=== PATIENT | male | born 1950 | race Caucasian/White ===

== ENCOUNTER 2018-07-20 08:05 | Inpatient (IN) | payer MEDICARE ==
[~2018-07-20] VITALS: Ht 162.6 cm; Wt 61.2 kg
[~2018-07-20 08:05] MED LIST: ALBU90OI61 INH; AMIT50 PO; ATEN25 PO; AZIT250 PO; Advil200 M1 PO; CAPT50 PO; DOXY100 PO; FERR325 PO; Fruity C250 MG PO; HYDACE5 PO; LEVOCETIRIZINE PO; LISHYD1012 PO; LORA1 PO; MELATONIN 10 M1 EACH PO; METO25ER PO; PANT40 PO; TRAZ50 PO; [UNRECOGNIZED DRUG - OTHER] PO
[2018-07-20 08:45] LABS: BASOPHILS ABSOLUTE AUTO 0.03 K/mm3 (0.00-0.23); BASOPHILS PERCENT AUTO 0 % (0-2); EOSINOPHILS ABSOLUTE AUTO 0.02 K/mm3 (0.00-0.68); EOSINOPHILS PERCENT AUTO 0 % (0-6); Hematocrit 38.4 % (37.0-53.0); Hemoglobin 11.8 g/dL (13.5-17.5); IMMATURE GRAN ABSOLUTE AUTO 0.05 K/mm3 (0.00-0.10); IMMATURE GRAN PERCENT AUTO 0 % (0-1); LYMPHOCYTES ABSOLUTE AUTO 0.44 K/mm3 (0.84-5.20); LYMPHOCYTES PERCENT AUTO 4 % (21-46); MONOCYTES ABSOLUTE AUTO 0.85 K/mm3 (0.16-1.47); MONOCYTES PERCENT AUTO 7 % (4-13); Mean Corpuscular HGB 25.2 pg (26.0-34.0); Mean Corpuscular HGB Conc 30.7 g/dL (31.5-36.5); Mean Corpuscular Volume 82 fL (80-100); Mean Platelet Volume 9.1 fL (9.1-12.4); NEUTROPHILS ABSOLUTE AUTO 10.88 K/mm3 (1.96-9.15); NEUTROPHILS PERCENT AUTO 89 % (41-73); Platelet Count 451 K/mm3 (150-400); RDW Coefficient Variation 18.8 % (11.7-14.2); RDW Standard Deviation 56.2 fL (35.1-46.3); Red Blood Cell Count 4.68 M/mm3 (4.30-5.90); White Blood Cell Count 12.27 K/mm3 (4.00-11.30)
[2018-07-20 09:08] LABS: Alanine Aminotransfer (ALT/SGP 10 U/L (12-78); Albumin, Blood 2.2 g/dL (3.4-5.0); Albumin/Globulin Ratio 0.4 (0.8-1.8); Alk Phos 62 U/L (50-136); Anion Gap 5 mmol/L (6-16); Aspartate Aminotrans (AST/SGOT 11 U/L (12-37); Bilirubin, Total 0.6 mg/dL (0.1-1.0); Blood Urea Nitrogen 15 mg/dL (8-24); Bun/Creatinine Ratio 17.3 (12.0-20.0); CO2, Blood 25 mmol/L (21-32); Chloride, Blood 103 mmol/L (98-108); Creatinine, Blood 0.87 mg/dL (0.60-1.20); Globulin, Blood 5.7 g/dL (2.2-4.0); Glomerular Filtration Rate >60 (60-); Glucose, Blood 123 mg/dL (70-99); Potassium, Blood 4.5 mmol/L (3.5-5.5); Sodium, Blood 133 mmol/L (136-145); Total Protein, Blood 7.9 g/dL (6.4-8.2); Troponin I <0.015 ng/mL (0.000-0.040)
[2018-07-20 09:51] LABS: Bicarbonate Venous 22.5 mmol/L (24.0-30.0); PCO2 Venous 31.6 mmHg (38-42); PO2 Venous 83.6 mmHg (38-42); pH Blood Venous 7.44 (7.34-7.37)
--- NOTE | 2018-07-20 15:56 | NUR ---
RECEIVED REPORT FROM WENDY SMITH
--- NOTE | 2018-07-20 18:10 | NUR ---
NOTIFIED DANIELE VIA [place] OF NEED FOR PALLIATIVE CARE CONSULT 07/20/18 @8768
--- NOTE | 2018-07-20 18:53 | NUR ---
SHIFT SUMMARY ED ADMIT THIS AFTERNOON. FROTHY PINKISH SPUTUM. LEFT SIDED PNEUMONIA. HX CVA/DEMENTIA OX2 PERSON, PLACE. CONFUSED AT TIMES. COGNITIVE IMPAIRMENT. LIVES IN APT INDEPENDENTLY. INDEPENDENT IN ROOM AND CONTINENT.
[2018-07-20 20:17] LABS: Adenovirus Not Detected (NOT DETECT); Bordetella pertussis Not Detected (NOT DETECT); Chlamydophila pneumoniae Not Detected (NOT DETECT); Coronavirus 229E Not Detected (NOT DETECT); Coronavirus HKU1 Not Detected (NOT DETECT); Coronavirus NL63 Not Detected (NOT DETECT); Coronavirus OC43 Not Detected (NOT DETECT); Human Metapneumovirus Not Detected (NOT DETECT); Human Rhinovirus/Enterovirus Not Detected (NOT DETECT); Influenza A Not Detected (NOT DETECT); Influenza A/2009-H1 Not Detected (NOT DETECT); Influenza A/H1 Not Detected (NOT DETECT); Influenza A/H3 Not Detected (NOT DETECT); Influenza B Not Detected (NOT DETECT); Mycoplasma pneumoniae Not Detected (NOT DETECT); Parainfluenza Virus 1 Not Detected (NOT DETECT); Parainfluenza Virus 2 Not Detected (NOT DETECT); Parainfluenza Virus 3 Not Detected (NOT DETECT); Parainfluenza Virus 4 Not Detected (NOT DETECT); Respiratory Syncytial Virus Not Detected (NOT DETECT)
--- NOTE | 2018-07-20 23:16 | NUR ---
2230 PT PULLED OUT LEFT ANTECUBITAL IV WHEN WALKING INTO BATHROOM, SITE WITHOUT REDNESS OR SWELLING, PRESSURE DRESSING APPLIED.
[2018-07-21 05:02] LABS: Hematocrit 32.4 % (37.0-53.0); Mean Corpuscular HGB 24.8 pg (26.0-34.0); Mean Corpuscular HGB Conc 30.9 g/dL (31.5-36.5); Mean Corpuscular Volume 80 fL (80-100); Mean Platelet Volume 9.2 fL (9.1-12.4); Platelet Count 390 K/mm3 (150-400); RDW Coefficient Variation 18.8 % (11.7-14.2); RDW Standard Deviation 54.4 fL (35.1-46.3); Red Blood Cell Count 4.04 M/mm3 (4.30-5.90); White Blood Cell Count 14.68 K/mm3 (4.00-11.30)
[2018-07-21 05:22] LABS: Anion Gap 7 mmol/L (6-16); Blood Urea Nitrogen 18 mg/dL (8-24); Bun/Creatinine Ratio 24.7 (12.0-20.0); CO2, Blood 22 mmol/L (21-32); Calcium, Blood 7.9 mg/dL (8.5-10.1); Chloride, Blood 106 mmol/L (98-108); Creatinine, Blood 0.73 mg/dL (0.60-1.20); Glomerular Filtration Rate >60 (60-); Glucose, Blood 101 mg/dL (70-99); Potassium, Blood 3.9 mmol/L (3.5-5.5); Sodium, Blood 135 mmol/L (136-145)
[2018-07-21 05:27] LABS: BAND PERCENT MAN 13 % (0-8); BASOPHILS ABSOLUTE MAN 0.14 K/mm3 (0.00-0.23); BASOPHILS PERCENT MAN 1 % (0-2); EOSINOPHILS PERCENT MAN 0 % (0-6); LYMPHOCYTES ABSOLUTE MAN 0.88 K/mm3 (0.84-5.20); LYMPHOCYTES PERCENT MAN 6 % (21-46); MONOCYTES ABSOLUTE MAN 0.88 K/mm3 (0.16-1.47); MONOCYTES PERCENT MAN 6 % (4-13); NEUTROPHILS ABSOLUTE MAN 12.77 K/mm3 (1.96-9.15); SEG NEUTROPHILS PERCENT MAN 74 % (41-73); TOTAL CELLS COUNTED 100
[2018-07-21 05:38] LABS: Percent Saturation 6.3 % (20.0-50.0)
--- NOTE | 2018-07-21 08:10 | NUR ---
SHIFT SUMMARY: 67 Y/O MALE HAD RESTLESS EVENING ALL NIGHT WITH OCCASIONAL HARSH NON PRODUCTIVE COUGH NOTED, LUNG SOUNDS ARE RHONCHI THROUGHOUT WHICH INCREASED DYSPNEA NOTED WITH SLIGHT ACTIVITY. PT STARTED ON O2 AT 2L/M PER NASAL CANNULA AFTER SATURATIONS WERE 85% (SATS AFTER O2 STARTED WERE 92%). PTS VOICED DESIRE TO LEAVE HOSPITAL MULTIPLE TIMES DUE TO IV PUMP NOISE AND FREQUENT STAFF INTERVENTIONS TO ASSIST. THIS NURSE REMINDED PATIENT OF CURRENT PNEUMONIA DIAGNOSIS AND NEED TO RECEIVE ANTIBIOTICS AND TREATMENTS PRIOR TO BE DISCHARGED TO AVOID A REPEAT HOSPITALIZATION PNEUMONIA ISSUE NOT RESOLVED WITH PATIENT AGREEING TO STAY IN HOSPITAL. PT HAS VERY SHORT ATTENTION SPAN AT TIMES NOTED BY THIS NURSE. PTS GIVEN TORALOL 30MG IVP X 1 FOR LEFT ABD PAIN WITH RELIEF FELT. PT DENIES NAUSEA. PTS BED ALARM APPLIED, BED LOW POSITION, CALL LIGHT AT SIDE.
--- NOTE | 2018-07-21 19:51 | NUR ---
SHIFT SUMMARY: PT HX DEMENTIA; CONFUSED. MEDICATED FOR PAIN PER EMAR. CHEST TUBE PLACED THIS SHIFT; SEROUS DRAINAGE. IV ABX CONTINUING. REPORT GIVEN TO ONCOMING RN.
--- NOTE | 2018-07-22 03:21 | NUR ---
PTS RESPIRATORY RATE 36 WITH NOTICEABLE DYSPNEA NOTED. PT HAD BEEN REFUSING ALL RESPIRATORY TX, THIS NURSE ENCOURAGED PT TO TAKE ALL NEBULIZERS TREATMENTS OFFERED BY RT WITH PATIENT IN AGREEMENT. PT THEN TOOK TREATMENT VIA RT. THIS NURSE EMPTIED LEFT REAR FLANK DRAIN 100ML SEROSANGUINUOUS FLUID.
--- NOTE | 2018-07-22 05:02 | NUR ---
SHIFT SUMMARY: 67 Y/O MALE HAD SLIGHTLY RESTLESS NIGHT AT TIMES WITH LUNG SOUNDS RHONCHI THROUGHOUT WITH HARSH PRODUCTIVE COUGH YELLOW PHELGM (MODERATE AMOUNT). PT HAS TENDENCY TO DECLINE RESPIRATORY TREATMENTS WITH THIS NURSE ENCOURAGING PATIENT TO TAKE NEBULIZERS WHEN OFFERED WITH PATIENT IN AGREEMENT. PT HAS SLIGHT BODY ODOR NOTED AND DECLINES TO WASH UP WITH SOAP/WATER AT THIS TIME. PT C/O LEFT FLANK PAIN ONCE WITH TORADOL 30MG IVP GIVEN WITH RELIEF FELT. PT IS ALERT AND ORIENTED X 3, ABLE TO FOLLOW SIMPLE VERBAL COMMANDS. PTS BED LOW POSITION, CALL LIGHT AT SIDE.
--- NOTE | 2018-07-22 05:17 | NUR ---
PT FREQUENTLY NON COMPLIANT WITH KEEPING O2 APPLIED WITH STAFF FINDING TUBING ON BED OR ON THE FLOOR.
[2018-07-22 05:21] LABS: BASOPHILS ABSOLUTE AUTO 0.03 K/mm3 (0.00-0.23); BASOPHILS PERCENT AUTO 0 % (0-2); EOSINOPHILS ABSOLUTE AUTO 0.05 K/mm3 (0.00-0.68); EOSINOPHILS PERCENT AUTO 0 % (0-6); Hemoglobin 10.4 g/dL (13.5-17.5); IMMATURE GRAN ABSOLUTE AUTO 0.16 K/mm3 (0.00-0.10); IMMATURE GRAN PERCENT AUTO 1 % (0-1); LYMPHOCYTES PERCENT AUTO 3 % (21-46); MONOCYTES ABSOLUTE AUTO 0.96 K/mm3 (0.16-1.47); MONOCYTES PERCENT AUTO 5 % (4-13); Mean Corpuscular HGB 24.5 pg (26.0-34.0); Mean Corpuscular HGB Conc 30.6 g/dL (31.5-36.5); Mean Corpuscular Volume 80 fL (80-100); Mean Platelet Volume 9.1 fL (9.1-12.4); NEUTROPHILS ABSOLUTE AUTO 16.38 K/mm3 (1.96-9.15); NEUTROPHILS PERCENT AUTO 90 % (41-73); Platelet Count 436 K/mm3 (150-400); Red Blood Cell Count 4.25 M/mm3 (4.30-5.90); White Blood Cell Count 18.18 K/mm3 (4.00-11.30)
[2018-07-22 05:41] LABS: Alanine Aminotransfer (ALT/SGP 12 U/L (12-78); Albumin, Blood 1.9 g/dL (3.4-5.0); Albumin/Globulin Ratio 0.4 (0.8-1.8); Alk Phos 66 U/L (50-136); Anion Gap 8 mmol/L (6-16); Aspartate Aminotrans (AST/SGOT 13 U/L (12-37); Bilirubin, Total 0.4 mg/dL (0.1-1.0); Blood Urea Nitrogen 16 mg/dL (8-24); Bun/Creatinine Ratio 23.5 (12.0-20.0); CO2, Blood 21 mmol/L (21-32); Calcium, Blood 8.4 mg/dL (8.5-10.1); Chloride, Blood 103 mmol/L (98-108); Creatinine, Blood 0.68 mg/dL (0.60-1.20); Globulin, Blood 5.1 g/dL (2.2-4.0); Glomerular Filtration Rate >60 (60-); Glucose, Blood 98 mg/dL (70-99); Lactate Dehydrogenase (Ld),Bld 364 U/L (100-240); Potassium, Blood 3.9 mmol/L (3.5-5.5); Sodium, Blood 132 mmol/L (136-145)
[2018-07-22 14:41] LABS: Protein, Body Fluid 5.8 g/dL
--- NOTE | 2018-07-22 18:37 | NUR ---
SHIFT SUMMARY: PT ALERT; CONFUSED; HX CVA IN 1989. MEDICATED FOR PAIN PER EMAR. PT FREQUENTLY REMOVING O2 R/T CONFUSION. PULMONOLOGY (DR BAUTISTA) SAW PT THIS SHIFT; NS D/C'd; ECHO ORDERED FOR 07/23; PT'S LUNGS SOUND VERY "WET"; DR BAUTISTA SUSPECTS ASPIRATION PNA. IV ABX CONTINUING. WCTM.
--- NOTE | 2018-07-23 04:20 | NUR ---
SHIFT SUMMARY: 67 Y/O MALE RESTED QUIETLY ALL SHIFT. PT AT BEGINNING OF SHIFT WAS SWEARING ALOT AT THIS NURSE AND APPEARED SLIGHTLY AGITATED AT TIMES WITH BEING IN HOSPITAL FOR EXTENDED PERIOD OF TIME WITH CURRENT ILLNESS. THIS NURSE PROVIDED LISTENING EAR AND ATTEMPTED TO REDIRECT WITHOUT SUCCESS. PTS LIGHTS WERE DIMMENED WITH PATIENT LATER APOLGIZING FOR HIS BEHAVIOR. PTS LUNG ARE RHONCHI THROUGHT WITH OCCASIONAL PRODUCTIVE COUGH BROWN PHELGM. PT HAS FREQUENT TENDENCY TO REMOVE O2 AND REQUIRES REMINDER FROM NURSING STAFF TO KEEP INTACT DUE TO DESATURATION EPISODES (PT SATS 91% WHILE WEARING O2 AT 2L/M PER NASAL CANNULA). PT HAS VERY STRONG BODY ODOR NOTED WITH THIS NURSE OFFERING TO SET UP FOR BEDSIDE BATH WITH DECLINATION NOTED AT THIS TIME. PTS IV RIGHT ANTECUBITAL INTACT. PT LEFT REAR FLANK DRAIN TUBE EMPTIED 60ML TEA COLORED FLUID. PT DENIES NEED FOR PAIN MEDS, NO NAUSEA NOTED. PTS BED LOW POSITION, CALL LIGHT AT SIDE.
[2018-07-23 05:14] LABS: BASOPHILS ABSOLUTE AUTO 0.04 K/mm3 (0.00-0.23); BASOPHILS PERCENT AUTO 0 % (0-2); EOSINOPHILS ABSOLUTE AUTO 0.04 K/mm3 (0.00-0.68); EOSINOPHILS PERCENT AUTO 0 % (0-6); Hematocrit 32.6 % (37.0-53.0); Hemoglobin 9.8 g/dL (13.5-17.5); IMMATURE GRAN ABSOLUTE AUTO 0.13 K/mm3 (0.00-0.10); IMMATURE GRAN PERCENT AUTO 1 % (0-1); LYMPHOCYTES ABSOLUTE AUTO 0.95 K/mm3 (0.84-5.20); LYMPHOCYTES PERCENT AUTO 5 % (21-46); MONOCYTES ABSOLUTE AUTO 1.01 K/mm3 (0.16-1.47); MONOCYTES PERCENT AUTO 5 % (4-13); Mean Corpuscular HGB 24.9 pg (26.0-34.0); Mean Corpuscular HGB Conc 30.1 g/dL (31.5-36.5); Mean Corpuscular Volume 83 fL (80-100); Mean Platelet Volume 9.3 fL (9.1-12.4); NEUTROPHILS ABSOLUTE AUTO 17.11 K/mm3 (1.96-9.15); NEUTROPHILS PERCENT AUTO 89 % (41-73); Platelet Count 443 K/mm3 (150-400); RDW Coefficient Variation 19.1 % (11.7-14.2); RDW Standard Deviation 58.4 fL (35.1-46.3); Red Blood Cell Count 3.94 M/mm3 (4.30-5.90); White Blood Cell Count 19.28 K/mm3 (4.00-11.30)
[2018-07-23 05:52] LABS: Albumin, Blood 1.7 g/dL (3.4-5.0); Anion Gap 6 mmol/L (6-16); Blood Urea Nitrogen 11 mg/dL (8-24); Bun/Creatinine Ratio 17.1 (12.0-20.0); CO2, Blood 23 mmol/L (21-32); Calcium, Blood 8.4 mg/dL (8.5-10.1); Chloride, Blood 105 mmol/L (98-108); Creatinine, Blood 0.64 mg/dL (0.60-1.20); Glomerular Filtration Rate >60 (60-); Glucose, Blood 85 mg/dL (70-99); Phosphorus, Blood 2.7 mg/dL (2.5-4.9); Potassium, Blood 3.8 mmol/L (3.5-5.5); Sodium, Blood 134 mmol/L (136-145)
--- NOTE | 2018-07-23 11:10 | NUR ---
Echocardiogram completed.
--- NOTE | 2018-07-23 15:50 | NUR ---
THE TEGADERM WAS REPLACED ON HIS LEFT DORSAL EMPYEMA DRAIN BECAUSE THE OLD ONE BEGAN TO ROLL UP AND OFF. ECHO DONE THIS MORNING. SPEECH THERAPIST EVALUATED HIM. HE NEEDS MECH SOFT DIET AND MEDS WHOLE IN APPLESAUCE. THE DRAINAGE COLOR IN THE DRAIN BAG HAS LIGHTENED UP. LUNGS ARE VERY COARSE AND HIS COUGH IS WEAK AND SOUNDS AWFUL. IT IS SO WET. HE IS ABLE TO EXPECTORATE A LITTLE OF IT. HE HAS DEMENTIA AND IS IRRITABLE OR AGITATED INTERMITTENTLY. HE IS MOSTLY COOPERATIVE. I HAVE HAD TO REPLACE HIS O2 CANNULA IN HIS NOSE MANY TIMES.
--- NOTE | 2018-07-23 18:38 | NUR ---
HE REMAINS CONFUSED AND COOPERATIVE. HE PAYS NO ATTENTION TO HIS DRAIN OR ANY SUPPLIES OR MEALS. THERE IS USUALLY SOMETHING ON THE FLOOR EACH TIME I GO INTO THE ROOM. HE USES THE URINAL AT THE BEDSIDE. THE LASIX LIGHTENED UP HIS URINE. HE HAS A WEAK, WET COUGH, SOMETIMES PRODUCTIVE. NO HEMOPTYSIS. SMALL AMT OF YELLOW FLUID EMPTIED FROM HIS L CT DRAIN BAG.
--- NOTE | 2018-07-23 23:27 | NUR ---
PTS LEFT FLANK DRAIN HAS NO DRAINAGE AT THIS TIME (INSERTION SITE INTACT).
--- NOTE | 2018-07-24 04:09 | NUR ---
SHIFT SUMMARY: 67 Y/O MALE RESTED COMFORTABLY ALL EVENING WITH HEAD OF BED AT SEMI FOWLERS POSITION. PTS HAPPY AND COOPERATIVE, ALERT TO PERSON, FOLLOWING ALL SIMPLE VERBAL COMMANDS. PTS LEFT FLANK DRAIN TUBE HAD SCANT SERO SANGUINUOUS DRAINAGE NOTED WITH INSERTIOIN SITE WITHOUT REDNESS OR SWELLING. PT WILL NOT WEAR O2 AT ALL AND CONSTANTLY REMOVES FROM FACE WHEN O2 PLACED BY STAFF (PT HAS POOR SHORT TERM MEMORY SPAN NOTED). PT DENIES PAIN OR NAUSEA. PTS BED LOW POSITION, CALL LIGHT AT SIDE. PT NOTED TO HAVE OCCASIONAL NON PRODUCTIVE HARSH COUGH (LESS FREQUENT COMPARED TO LAST PM SHIFT).
[2018-07-24 04:55] LABS: BASOPHILS ABSOLUTE AUTO 0.05 K/mm3 (0.00-0.23); BASOPHILS PERCENT AUTO 0 % (0-2); EOSINOPHILS ABSOLUTE AUTO 0.04 K/mm3 (0.00-0.68); EOSINOPHILS PERCENT AUTO 0 % (0-6); Hematocrit 32.1 % (37.0-53.0); IMMATURE GRAN ABSOLUTE AUTO 0.13 K/mm3 (0.00-0.10); IMMATURE GRAN PERCENT AUTO 1 % (0-1); LYMPHOCYTES ABSOLUTE AUTO 0.95 K/mm3 (0.84-5.20); LYMPHOCYTES PERCENT AUTO 4 % (21-46); MONOCYTES ABSOLUTE AUTO 1.27 K/mm3 (0.16-1.47); MONOCYTES PERCENT AUTO 6 % (4-13); Mean Corpuscular HGB 25.1 pg (26.0-34.0); Mean Corpuscular HGB Conc 31.2 g/dL (31.5-36.5); Mean Corpuscular Volume 81 fL (80-100); NEUTROPHILS ABSOLUTE AUTO 19.09 K/mm3 (1.96-9.15); NEUTROPHILS PERCENT AUTO 89 % (41-73); Platelet Count 458 K/mm3 (150-400); RDW Coefficient Variation 19.2 % (11.7-14.2); RDW Standard Deviation 56.6 fL (35.1-46.3); Red Blood Cell Count 3.98 M/mm3 (4.30-5.90); White Blood Cell Count 21.53 K/mm3 (4.00-11.30)
[2018-07-24 05:14] LABS: Albumin, Blood 1.8 g/dL (3.4-5.0); Anion Gap 5 mmol/L (6-16); Blood Urea Nitrogen 11 mg/dL (8-24); Bun/Creatinine Ratio 17.4 (12.0-20.0); CO2, Blood 29 mmol/L (21-32); Calcium, Blood 8.7 mg/dL (8.5-10.1); Chloride, Blood 102 mmol/L (98-108); Creatinine, Blood 0.63 mg/dL (0.60-1.20); Glomerular Filtration Rate >60 (60-); Glucose, Blood 95 mg/dL (70-99); Phosphorus, Blood 2.6 mg/dL (2.5-4.9); Potassium, Blood 3.1 mmol/L (3.5-5.5); Sodium, Blood 136 mmol/L (136-145)
--- NOTE | 2018-07-24 15:18 | NUR ---
GAVE PT BEDBATH AT ABOUT 1330 PM. CHANGED LINENS AND PT IN NEW CLOTHES. NOTICED PT DOES NOT WIPE THOROUGHLY AFTER BM. STOOL RESIDUAL NOTED ON INSIDE OF PJ BOTTOMS. CLEANED WITH WET WIPES AND DRIED THOROUGHLY.
[2018-07-24 20:30] LABS: Vancomycin, Trough 12.6 ug/mL (5.0-10.0)
--- NOTE | 2018-07-25 04:06 | NUR ---
SHIFT SUMMARY: 67 Y/O MALE RESTED COMFORTABLY IN SEMI FOWLERS ALL NIGHT. PTS LUNGS ARE RHONCHI THROUGHOUT WITH OCCASIONAL HARSH PRODUCTIVE COUGH SCANT BROWN PHELGM. PT REMOVES O2 FROM SELF FREQUENTLY AND REFUSES TO WEAR CONSISTENTLY. PT ALERT AND ORIENED X 2, ABLE TO FOLLOW SIMPLE VERBAL COMMANDS. PTS LEFT FLANK DRAIN HAD ZERO OUTPUT WITH INSERTION SITE COVERED WITH STERILE DRESSING. PTS BED LOW POSITION, CALL LIGHT AT SIDE.
[2018-07-25 05:30] LABS: BASOPHILS ABSOLUTE AUTO 0.04 K/mm3 (0.00-0.23); BASOPHILS PERCENT AUTO 0 % (0-2); EOSINOPHILS ABSOLUTE AUTO 0.03 K/mm3 (0.00-0.68); EOSINOPHILS PERCENT AUTO 0 % (0-6); Hematocrit 31.5 % (37.0-53.0); Hemoglobin 9.8 g/dL (13.5-17.5); IMMATURE GRAN ABSOLUTE AUTO 0.23 K/mm3 (0.00-0.10); IMMATURE GRAN PERCENT AUTO 1 % (0-1); LYMPHOCYTES ABSOLUTE AUTO 0.94 K/mm3 (0.84-5.20); LYMPHOCYTES PERCENT AUTO 4 % (21-46); MONOCYTES ABSOLUTE AUTO 1.47 K/mm3 (0.16-1.47); MONOCYTES PERCENT AUTO 7 % (4-13); Mean Corpuscular HGB 25.1 pg (26.0-34.0); Mean Corpuscular HGB Conc 31.1 g/dL (31.5-36.5); Mean Corpuscular Volume 81 fL (80-100); Mean Platelet Volume 9.2 fL (9.1-12.4); NEUTROPHILS ABSOLUTE AUTO 18.53 K/mm3 (1.96-9.15); NEUTROPHILS PERCENT AUTO 87 % (41-73); Platelet Count 460 K/mm3 (150-400); RDW Coefficient Variation 19.5 % (11.7-14.2); RDW Standard Deviation 57.5 fL (35.1-46.3); Red Blood Cell Count 3.91 M/mm3 (4.30-5.90); White Blood Cell Count 21.24 K/mm3 (4.00-11.30)
[2018-07-25 05:44] LABS: Albumin, Blood 1.7 g/dL (3.4-5.0); Anion Gap 3 mmol/L (6-16); Blood Urea Nitrogen 10 mg/dL (8-24); Bun/Creatinine Ratio 16.1 (12.0-20.0); CO2, Blood 30 mmol/L (21-32); Calcium, Blood 8.3 mg/dL (8.5-10.1); Chloride, Blood 105 mmol/L (98-108); Creatinine, Blood 0.62 mg/dL (0.60-1.20); Glomerular Filtration Rate >60 (60-); Glucose, Blood 104 mg/dL (70-99); Phosphorus, Blood 3.2 mg/dL (2.5-4.9); Potassium, Blood 3.4 mmol/L (3.5-5.5); Sodium, Blood 138 mmol/L (136-145)
--- NOTE | 2018-07-25 14:46 | NUR ---
PT REQUESTED ACETOMINAPHEN FOR PAIN. WHEN ASKED ON A SCALE OF 1-10 WHERE HIS PAIN LEVEL WAS, THE PT STATED IT WAS AT A 7 AND WAS ON THE LEFT AND RIGHT SIDES OF HIS ABDOMEN. WHEN I ASKED WHAT IS AN ACCEPTABLE PAIN LEVEL, HE STATED AN 8 OUT OF 10. I CLARIFIED THE LEVELS WITH USE OF THE FACE CHART AND HE STATED HE'D LIKE IT AT A 3.
--- NOTE | 2018-07-25 18:26 | NUR ---
67 Y/O MALE PATIENT WITH SEPSIS AND IS ON A MECHANICAL SOFT DIET DUE TO RESPIRATORY DISTRESS. PT IS ON A NC WITH 4L OF O2 AND WOULD REMOVE THE NC REPEATEDLY DESPITE TEACHING. PT WAS COMPLIANT AND COOPERATIVE WITH CARE. PT HAD A HARD TIME SWALLOWING DOCUSATE SODIUM AND REFUSED TO TAKE THE DOCUSATE ALONG WITH VITAMIN C AND FERROUS SULFATE. FUTURE PILL FORM MEDS WERE CRUSHED AND MIXED WITH APPLESAUCE WHICH THE PATIENT TOLERATED WELL. A EGGCRATE MATTRESS WAS PLACED ON TO BED FOR COMFORT. PT TOOK ACETOMINAPHEN FOR BACK PAIN WHICH WAS CRUSHED AND PLACED IN APPLESAUCE. PT WAS DISCHARGED TO [facility] IN ORDER TO RECIEVE SURGICAL DECORTICATION.
--- NOTE | 2018-07-25 18:30 | NUR ---
TRANSFER PT LEFT [facility] AT 1630 [address] [place] TRANSFER TO [facility]. THIS RN CALLED REPORT TO WENDY LU AT 1725. PT'S LILIYA, WHO PT REQUESTED KNEW ABOUT TRANSFER IS AWARE. PT'S BELONGINGS WITH PT.
== END 2018-07-25 16:33 | disposition short-term general hospital (02) | DRG 871 ==
LOC: ER 08:05 → PCU 13:57 → MEDS 13:57 → ENPENDDIS 07-25 14:43 → MEDS 07-25 16:33
PROVIDERS: Emergency Medicine; Internal Medicine Critical Care Medicine; Pharmacist; ADMIT Internal Medicine
PROC: 0W9B30Z Drainage of Left Pleural Cavity with Drainage Device, Percutaneous Approach (ICD-10-PCS; principal; 2018-07-21)
DX: A41.9 Sepsis, unspecified organism (principal); J18.9 Pneumonia, unspecified organism; J96.01 Acute respiratory failure with hypoxia; E87.1 Hypo-osmolality and hyponatremia; J43.9 Emphysema, unspecified; F17.210 Nicotine dependence, cigarettes, uncomplicated; Z86.73 Personal history of transient ischemic attack (TIA), and cerebral infarction without residual deficits; F41.8 Other specified anxiety disorders; K27.9 Peptic ulcer, site unspecified, unspecified as acute or chronic, without hemorrhage or perforation; F03.90 Unspecified dementia, unspecified severity, without behavioral disturbance, psychotic disturbance, mood disturbance, and anxiety; D64.9 Anemia, unspecified; K21.9 Gastro-esophageal reflux disease without esophagitis; D50.9 Iron deficiency anemia, unspecified
CPT/HCPCS: 32557; 36415; 71045; 71046; 71260; 80048; 80053; 80069; 80202; 82728; 82803; 82945; 83540; 83550; 83605; 83615; 83880; 84157; 84484; 85025; 87040; 87070; 87075; 87205; 87486; 87581; 87633; 87798; 88108; 92610; 93005; 93010; 93306; 94640; 94644; 94760; 96361; 96372-59; 96374; 96375; 99285-25; J0456; J0696; J1650; J1885; J1940; J2543; J3370; J7030; J7050; Q9967

== ENCOUNTER 2019-03-24 15:10 | Inpatient (IN) | payer MEDICARE ==
[~2019-03-24] VITALS: Ht 162.6 cm; Wt 64.5 kg
[2019-03-24 16:00] LABS: BASOPHILS ABSOLUTE AUTO 0.03 K/mm3 (0.00-0.23); BASOPHILS PERCENT AUTO 1 % (0-2); EOSINOPHILS ABSOLUTE AUTO 0.28 K/mm3 (0.00-0.68); EOSINOPHILS PERCENT AUTO 5 % (0-6); Hematocrit 29.3 % (37.0-53.0); Hemoglobin 9.2 g/dL (13.5-17.5); IMMATURE GRAN ABSOLUTE AUTO 0.02 K/mm3 (0.00-0.10); IMMATURE GRAN PERCENT AUTO 0 % (0-1); LYMPHOCYTES ABSOLUTE AUTO 1.35 K/mm3 (0.84-5.20); LYMPHOCYTES PERCENT AUTO 22 % (21-46); MONOCYTES ABSOLUTE AUTO 0.35 K/mm3 (0.16-1.47); MONOCYTES PERCENT AUTO 6 % (4-13); Mean Corpuscular HGB 29.7 pg (26.0-34.0); Mean Corpuscular HGB Conc 31.4 g/dL (31.5-36.5); Mean Corpuscular Volume 95 fL (80-100); Mean Platelet Volume 10.2 fL (9.1-12.4); NEUTROPHILS PERCENT AUTO 66 % (41-73); Platelet Count 301 K/mm3 (150-400); RDW Coefficient Variation 18.6 % (11.7-14.2); RDW Standard Deviation 64.1 fL (35.1-46.3); White Blood Cell Count 6.03 K/mm3 (4.00-11.30)
[2019-03-24 16:16] LABS: Alanine Aminotransfer (ALT/SGP 18 U/L (12-78); Albumin, Blood 2.7 g/dL (3.4-5.0); Albumin/Globulin Ratio 0.3 (0.8-1.8); Alk Phos 76 U/L (50-136); Anion Gap 0 mmol/L (6-16); Aspartate Aminotrans (AST/SGOT 43 U/L (12-37); Bilirubin, Total 0.4 mg/dL (0.1-1.0); Blood Urea Nitrogen 22 mg/dL (8-24); Bun/Creatinine Ratio 17.6 (12.0-20.0); CO2, Blood 26 mmol/L (21-32); Calcium, Blood 9.1 mg/dL (8.5-10.1); Chloride, Blood 105 mmol/L (98-108); Creatinine, Blood 1.25 mg/dL (0.60-1.20); Globulin, Blood 8.4 g/dL (2.2-4.0); Glomerular Filtration Rate >60 (60-); Glucose, Blood 123 mg/dL (70-99); Potassium, Blood 4.6 mmol/L (3.5-5.5); Sodium, Blood 131 mmol/L (136-145); Total Protein, Blood 11.1 g/dL (6.4-8.2)
[2019-03-24 17:19] LABS: Troponin I 0.123 ng/mL (0.000-0.040)
[2019-03-24 17:21] LABS: Thyroid Stimulating Hormone 2.08 uIU/mL (0.360-4.800)
[2019-03-24 18:11] LABS: Source, Urine Voided
[2019-03-24 18:16] LABS: Bilirubin, Urine Neg (Neg); Blood, Urine 1+ (Neg); Glucose Qualitative, Urine Neg (Neg); Ketones, Urine Neg (Neg); Leukocyte Esterase, Urine Neg (Neg); Nitrite, Urine Neg (Neg); Protein, Urine Neg (Neg); Specific Gravity, Urine 1.015 (1.003-1.022); Urobilinogen, Urine NORM (Normal)
[2019-03-24 18:24] LABS: Appearance, Urine Clear (Clear); Color, Urine Yellow (P-Yellow)
[2019-03-24 18:26] LABS: Bacteria Few /hpf; Squamous Epithelial Cells Not Seen /hpf (Few)
[2019-03-24 18:37] LABS: U Amphetamine Screen Not Detected; U Barbituate Screen Not Detected; U Benzodiazapine Screen Not Detected; U Buprenorphine Screen Not Detected; U Cannabinoids Screen Not Detected; U Cocaine Screen Not Detected; U Methadone Screen Not Detected; U Methamphetamine Screen Not Detected; U Opiates Screen Not Detected; U Oxycodone Screen Not Detected; U Phencyclidine Screen Not Detected; U Propoxyphene Screen Not Detected
[2019-03-24] MEDS ORDERED: TRAZ50 PO (19:27)
--- NOTE | 2019-03-24 22:31 | NUR ---
2371 REPORT RECEIVED FROM WENDY ANGUIANO FROM EMERGENCY ROOM; PT HAS VERY STRONG BODY ODOR NOTED WIHT LARGE AMOUNT DIRT REMOVED FROM LOWER LEGS; THIS NURSE REMOVED FOUR LAYERS SOCKS FROM BILATERAL FEET WITH OLD DRESSING REMOVED FROM LEFT FOOT--NO WOUNDS NOTED TO FOOT; ALERT AND ORIENTED X 4; DENIES PAIN OR SOB OR NAUSEA; BED ALARM APPLIED WITH CALL LIGHT AT SIDE.
--- NOTE | 2019-03-25 04:55 | NUR ---
SHIFT SUMMARY: 68 Y/O MALE RESTED COMFORTABLY LAST 1/2 OF SHIFT; PT HAS VERY STRONG BODY ODOR WITH VERY POOR HYGIENE NOTED; NO BED SORES OR WOUNDS NOTED TO ENTIRE BODY; PT DENIES PAIN OR NAUSEA; PT AT BEGINNING OF SHIFT WAS SLIGHTLY AGITATED AT BEING HOSPITALIZED AND DESIRED TO LEAVE (PT GIVEN SANDWICH AND PUDDING WHICH RESOLVED ISSUE; PT HAS ZYPREXA AND HALDOL, PRN ORDERED IF NEEDED); PTS TROPONIN WAS .319 AT 1930 LAST NIGHT WITH REPEAT LABS ORDERED THIS AM; DENIES CHEST PAIN OR NAUSEA; BED ALARM APPLIED, BED LOW POSITION WITH CALL LIGHT AT SIDE.
[2019-03-25 05:56] LABS: Anion Gap 4 mmol/L (6-16); Blood Urea Nitrogen 25 mg/dL (8-24); Bun/Creatinine Ratio 21.7 (12.0-20.0); CO2, Blood 22 mmol/L (21-32); Calcium, Blood 8.4 mg/dL (8.5-10.1); Chloride, Blood 110 mmol/L (98-108); Creatinine, Blood 1.15 mg/dL (0.60-1.20); Glomerular Filtration Rate >60 (60-); Glucose, Blood 84 mg/dL (70-99); Potassium, Blood 4.2 mmol/L (3.5-5.5); Sodium, Blood 136 mmol/L (136-145); Troponin I 0.312 ng/mL (0.000-0.040)
--- NOTE | 2019-03-25 06:16 | NUR ---
TROPONIN 0.312 THIS AM (DECREASED FROM LAST DRAW 0.319; ABBEY SANABRIA, RN, CHARGE NURSE ADVISED; WILL PASS ONTO DAY SHIFT RN TO CONTACT MD IF FURTHER LABS ARE NEEDED TODAY FOR FOLLOW UP.
--- NOTE | 2019-03-25 11:47 | NUR ---
Echocardiogram completed.
[2019-03-25 13:59] LABS: Adenovirus Not Detected (NOT DETECT); Bordetella pertussis Not Detected (NOT DETECT); Chlamydophila pneumoniae Not Detected (NOT DETECT); Coronavirus 229E Not Detected (NOT DETECT); Coronavirus HKU1 Not Detected (NOT DETECT); Coronavirus NL63 Not Detected (NOT DETECT); Coronavirus OC43 Not Detected (NOT DETECT); Human Metapneumovirus Not Detected (NOT DETECT); Human Rhinovirus/Enterovirus Not Detected (NOT DETECT); Influenza A Not Detected (NOT DETECT); Influenza A/2009-H1 Not Detected (NOT DETECT); Influenza A/H1 Not Detected (NOT DETECT); Influenza A/H3 Not Detected (NOT DETECT); Influenza B Not Detected (NOT DETECT); Mycoplasma pneumoniae Not Detected (NOT DETECT); Parainfluenza Virus 1 Not Detected (NOT DETECT); Parainfluenza Virus 2 Not Detected (NOT DETECT); Parainfluenza Virus 3 Not Detected (NOT DETECT); Parainfluenza Virus 4 Not Detected (NOT DETECT); Respiratory Syncytial Virus Not Detected (NOT DETECT)
--- NOTE | 2019-03-25 16:33 | NUR ---
SHIFT SUMMARY TROPONIN TRENDING DOWN. PT DENIES CP THROUHGOUT SHIFT. VSS. PT AGREED TO BEDBATH THIS SHIFT. RESP PANEL COLLECTED & NEGATIVE THIS SHIFT. NO OTHER CHANGES IN ASSESSMENT AT THIS TIME. WILL CONTINUE TO MONITOR UNTIL TURNOVER IS COMPLETE. BREATHING TREATMENTS ORDERED. RT ON BOARD.
--- NOTE | 2019-03-25 22:34 | NUR ---
2000 PT RESTING COMFORTABLY; LUNG SOUNDS COARSE THROUGHOUT WITH OCCASIONAL NON PRODUCTIVE COUGH NOTED; TELEMETRY REFLECTS NSR WITH HEART RATE 92 PER SUSANNE RAILROAD SIGNAL TECHNICIAN.
--- NOTE | 2019-03-26 04:21 | NUR ---
SHIFT SUMMARY: 68 Y/O MALE RESTED COMFORTABLY ALL SHIFT; PT LUNG SOUNDS ARE COARSE THROUGHOUT WITH OCCASIONAL HARSH NON PRODUCTIVE COUGH NOTED; COOPERATIVE AND POLITE TO STAFF ALL SHIFT; DENIES PAIN OR NAUSEA; BED LOW POSITION WITH CALL LIGHT AT SIDE.
[2019-03-26 05:52] LABS: BASOPHILS ABSOLUTE AUTO 0.03 K/mm3 (0.00-0.23); BASOPHILS PERCENT AUTO 1 % (0-2); EOSINOPHILS ABSOLUTE AUTO 0.58 K/mm3 (0.00-0.68); EOSINOPHILS PERCENT AUTO 13 % (0-6); Hematocrit 29.9 % (37.0-53.0); Hemoglobin 9.1 g/dL (13.5-17.5); IMMATURE GRAN ABSOLUTE AUTO 0.01 K/mm3 (0.00-0.10); IMMATURE GRAN PERCENT AUTO 0 % (0-1); LYMPHOCYTES ABSOLUTE AUTO 1.25 K/mm3 (0.84-5.20); LYMPHOCYTES PERCENT AUTO 28 % (21-46); MONOCYTES ABSOLUTE AUTO 0.39 K/mm3 (0.16-1.47); MONOCYTES PERCENT AUTO 9 % (4-13); Mean Corpuscular HGB 29.2 pg (26.0-34.0); Mean Corpuscular HGB Conc 30.4 g/dL (31.5-36.5); Mean Corpuscular Volume 96 fL (80-100); Mean Platelet Volume 9.2 fL (9.1-12.4); NEUTROPHILS ABSOLUTE AUTO 2.15 K/mm3 (1.96-9.15); NEUTROPHILS PERCENT AUTO 49 % (41-73); Platelet Count 254 K/mm3 (150-400); RDW Coefficient Variation 18.7 % (11.7-14.2); RDW Standard Deviation 66.4 fL (35.1-46.3); Red Blood Cell Count 3.12 M/mm3 (4.30-5.90); White Blood Cell Count 4.41 K/mm3 (4.00-11.30)
[2019-03-26 06:04] LABS: Anion Gap 2 mmol/L (6-16); Blood Urea Nitrogen 22 mg/dL (8-24); Bun/Creatinine Ratio 20.2 (12.0-20.0); CO2, Blood 25 mmol/L (21-32); Calcium, Blood 8.8 mg/dL (8.5-10.1); Chloride, Blood 109 mmol/L (98-108); Creatinine, Blood 1.09 mg/dL (0.60-1.20); Glomerular Filtration Rate >60 (60-); Glucose, Blood 78 mg/dL (70-99); Magnesium, Blood 2.2 mg/dL (1.6-2.4); Potassium, Blood 3.9 mmol/L (3.5-5.5); Sodium, Blood 136 mmol/L (136-145)
--- NOTE | 2019-03-26 17:24 | NUR ---
SHIFT SUMMARY PT BREATHING BETTER TODAY COMPARED. LESS COUGHING THIS AFTERNOON. PT PLEASANT THROUGHOUT SHIFT. BASELINE MENTATION. SLIGHTLY DEMENTED BUT REORIENTABLE. VSS. PT WORKED WITH PT THIS SHIFT. SAT UP IN CHAIR FOR LUNCH. TOLERATED WELL. POSSIBLE DC TOMORROW. NO OTHER CHANGES IN ASSESSMENT AT THIS TIME. VSS. WILL CONTINUE TO MONITOR UNTIL TURNOVER IS COMPLETE.
--- NOTE | 2019-03-26 20:12 | NUR ---
BRIDGET SITTING IN BED, DENIES ANY PAIN OR DISCOMFORT. LUNG SOUNDS VERY COURSE WITH SOME EXPIRTORY WHEEZES IN UPPER LOBES. COUGH IS PRODUCTIVE THICK ARMENTA COLOR SPUTUM. PATIENT ABLE TO STATE NAME AND , KNOWS HE IS SICK BUT IF FORGETFUL ON WHERE HE IS AT AND WHAT IS GOING ON AT TIMES. FORGETS HOW TO USE THE CALL LIGHT AT TIMES AND OTHER TIMES USES IT. GAVE TRAZDONE PER EMAR. CALL LIGHT IN REACH, WILL CONTINUE TO MONITOR.
--- NOTE | 2019-03-27 02:44 | NUR ---
BRIDGET HAS BEEN UP AND DOWN TONIGHT. HE GOT UP ONCE VERY AGGITATED THAT SOMEONE CAME IN HIS ROOM WITH OUT KNOCKING ON THE DOOR. STATED HE FLET LIKE SLAMMING IN HER FACE BUT HE IS TRYING TO BE GOOD, HE JUST WANTED THE COMMUNITY FACILITATOR TO KNOCK NEXT TIME. BRIDGET FORGOT HE JUST USED HIS CALL LIGHT AND COMMUNITY FACILITATOR WAS ANSWERING IT BUT HE DID NOT HEAR THE KNOCK. THEN HE STARTED PUSHING BUTTONS IN THE ROOM AND ENDED UP CALLING A STAFF ASSIST TO THE ROOM. EVERY ONE WENT RUNNING AND IT SCARED HIM WHEN THEY OPENED THE DOOR. HE DID NOT REALIZE HE DID THAT. HE DID GET IN THE COMMUNITY FACILITATOR FACE SHE SAID, AGGITATED. WENT INTO THE ROOM AND TALKED TO HIM, HE SAID HE IS FEELING VERY AGGITATED AND WORKED UP. HE AGREED TO TAKE SOMETHING. GAVE HIM HALDOL 5MG AND TUCKED HIM INTO BED.
--- NOTE | 2019-03-27 05:35 | NUR ---
SHIFT SUMMARY: BRIDGET STARTED OFF THE NIGHT GOOD. HE WAS COOPERATIVE AND FOLLOWING DIRECTIONS WELL. LUNG SOUNDS WERE COURSE WITH SOME EXPIRTORY WHEEZES. COUGH IS STILL PRODUCTIVE BUT NO OXYGEN WAS INDICATED. VS DID SHOW SLIGHT ELEVATION WHICH ON RETAKE WAS NORMAL. LATER IN THE NIGHT HE GOT AGGITATED AT FIRST FOR OPENING THE DOOR, THEN FOR EVERYONE COMING TO THE ROOM AFTER HE PUSHED THE STAFF ASSIST BUTTON. GAVE HIM 5MG OF HALDOL WHICH ALLOWED HIM TO CALM DOWN AND FINALLY FELL ASLEEP. CALL LIGHT USED ONCE OR TWICE BUT HE CAME OUT IN THE [place] MOST OF THE NIGHT. NO OTHER ACUTE CHANGES OCCURRED THIS SHIFT.
--- NOTE | 2019-03-27 20:26 | NUR ---
BRIDGET WAS CRUNCHED DOWN IN BED, TRYING TO SLEEP. HE IS DOING BETTER THEN LAST NIGHT, IT APPEARS THE CONFUSION IS MORE TOWARDS THE NIGHT, LIKE HE SUNDOWNS. HE IS CALM AND COOPERATIVE. STATES HE WANTS TO SLEEP TONIGHT. HE DID TAKE HIS MED AND TOOK A DRINK OF WATER BUT HE COUGHED RIGHT AFTERWARDS. DISCUSSED CHIN TUCK WHEN HE DRINKS AND EATS HAD HIM DEMENSTRATE. LUNG SOUNDS STILL RHONCI IN THE BASES. ENCOURAGE USE OF FLUTTER VALVE. CALL LIGHT IN REACH. WILL CONTINUE TO MONITOR.
--- NOTE | 2019-03-28 05:55 | NUR ---
SHIFT SUMMARY: BRIDGET HAD A BETTER NIGHT. HE REMAINED ALERT AND ORIENTED TO HIS SURROUNDINGS AND TREATMENTS. HE EVEN GOT A GOOD 4-5 HOURS OF SLEEP AND STATED THAT IS ABOUT HIS NORM. VS REMAINED IN NORMAL LIMITS. COUGH PRODUCTION IS CLEAR. LUNG SOUNDS ARE STILL RHONCI IN THE BASES. ENCOURAGED FLUTTER VALVE USE. DENIED ANY PAIN OR DISCOMFORT. USED URINAL THROUGHOUT THE NIGHT. NO ACUTE CHANGES TO REPORT.
--- NOTE | 2019-03-28 17:59 | NUR ---
SHIFT SUMMARY PT WORKED WITH PHSYICAL THERAPY AND OCCUPATIONAL THERAPY TODAY AND AMBULATED IN [place]. PT DID SIT IN THE CHAIR FOR BREAKFAST BUT HAS DECLINED TO GET UP IN THE CHAIR FOR LUNCH AND DINNER. THIS RN ENCOURAGED PT TO SIT UP IN THE CHAIR FOR SWALLOWING REASONS BUT PT CONTINUES TO DECLINE. PT ALSO CONTINUES TO DECLINE TO TAKE A SHOWER. STAFF WAS ABLE TO CHANGE THE LINEN WHEN PT WAS AMBULATING IN THE [place] BUT PT WOULD NOT TAKE A SHOWER. PT HAS HAD NO COMPLAINTS THIS SHIFT. NO ACUTE CHANGES THIS SHIFT. CALL LIGHT IN REACH. WILL CONTINUE TO MONITOR AND REPORT TO ONCOMING RN.
--- NOTE | 2019-03-28 19:25 | NUR ---
BRIDGET IS LAYING IN BED EATING HIS FRUIT CUP. ASKING FOR HIS TRAZADONE. INFORMED HIM THAT WILL BE GETTING IT FOR HIM SOON. ASKED HIM IF HE WILL TAKE A SHOWER, HE SAID NO HE PUTS DEODORANT ON SO HE DOES NOT NEED ONE. HE WAS VERY INSISTANT THAT HE DID NOT NEED ONE. HE JUST WANTS TO GET HIS TRAZADONE AND GO TO BED. WILL TRY TO ATTEMPT USING A SHOWER CAP TO WASH HIS HAIR AT LEAST SEE IF HE WILL TRY THAT.
--- NOTE | 2019-03-29 05:32 | NUR ---
SHIFT SUMMARY: BRIDGET REMAINED COOPERATIVE AND PLEASANT. HE WAS MORE INFORMATIVE TONIGHT. STATES HE SOMETIMES GETS SCARED WHEN PEOPLE JUST WALK INTO HIS ROOM. STATED THAT HE GETS SCARED EASILY LIKE WHEN HE IS ON THE STREET. AND SAYS HE FEELS HE WILL SLAM THE DOOR IN THERE FACES NOT ON PURPOSE BUT OUT OF REACTION. HE DOES NOT WANT TO HURT ANYONE BUT WAS ASKING IF PEOPLE CAN LET HIM KNOW THEY ARE COMING IN THE ROOM. ALSO FOUND OUT HE IS A VERY PRIVATE MAN AND DOES NOT LIKE PEOPLE SEEING HIM NAKED, TO WHY HE DOES NOT WANT TO TAKE A SHOWER. STATE HE DOES WASH DOWN, BUT DOES NOT LIKE TO GET WET THAT OFTEN. OFFERED HIM SHOWER CAPS TO WASH WITH. WAS ABLE TO WASH ARMS TO SHOW HIM. ADI WAS ABLE TO GET HIS CLOTHES AND WASH THEM. HE DID ASK HOW MUCH HE NEEDED TO PAY FOR STAYING HERE AND HOW LONG HE CAN RENT THE BED. REMINDED HIM OF HOSPTIAL STAY. HE GETS SCARED OF NOISES WELL. FROM HIS CONVERSATIONS IT SEEMS HE LIVES ON THE STREETS. OTHER THEN MILD CONFUSION HERE AND THERE, HE REMAINED CALM AND QUIET IN HIS ROOM. CALL LIGHT REMAINED IN REACH AND USED APPROPRIATLY.
--- NOTE | 2019-03-30 05:53 | NUR ---
SHIFT SUMMARY: PATIENT IV SITE WAS BLOWN WHEN I CHECKED IT. PATIENT REFUSED ANOTHER. SPOKE TO GRINDER HAND NEIL FALL REGARDING PATIENT, SHE OKAYED TO LEAVE IV OUT. PT IS A BIT GRUFF IN MANNER, BUT COOPERATIVE WITH CARE.
--- NOTE | 2019-03-30 18:06 | NUR ---
SHIFT SUMMARY PATIENT A/O X 3. PATIENT WAS AMBULATING WITHOUT ASSISTANCE WITHIN ROOM. PATIENT HAD A FALL WITHIN ROOM THIS AFTERNOON, PROVIDER NOTIFIED, CHARGE NOTIFIED. BED/CHAIR ALARM ON IN PLACE. PATIENT REFUSED TO PUT FALL RISK GOWN ON. VERONICA ELDER HAD INTERVIEW WITH PATIENT THIS AFTERNOON. AWAITING PLACEMENT. PATIENT HAD BREATHING TX PRN.
--- NOTE | 2019-03-31 04:33 | NUR ---
OBEDIENCE TRAINER SUMMARY PT AAOX2-3, VERY FORGETFUL AND IMPULSIVE. PT WAS INDEPENDENT UNTIL HE HAD A FALL DURING DAY SHIFT. PT NOW ON FALL PRECAUTIONS AND BED ALARM WHICH CAUSES PT TO BE VERY IRRITABLE WITH STAFF PT WANTS TO BE INDEPENDENT. PT MUST BE REORIENTED AT TIMES TO WHERE HE IS. VSS, WILL CONTINUE TO MONITOR.
--- NOTE | 2019-03-31 11:01 | NUR ---
PATIENT HAS BEEN UP AND DOWN IN ROOM. IN CHAIR IN HALLWAY WITH STAFF. THIS RN NOTIFIED FABRICE MARIA OF PATIENT UNWILLINGNESS TO USE CALL LIGHT. FABRICE AND SHREE SAT WITH PATIENT. PT WORKED WITH PATIENT. STATED PATIENT SHOULD WEAR SHOES IF WILLING FOR STABILITY. ENCOURAGED USE OF WALKER. GAVE NEW PANTS AND NEW SOCKS THAT ARE MORE ADEQUATE IN SIZE. PATIENT CONTINUES TO GET UP AND WALK AROUND. ENCOURAGING PATIENT TO REQUEST ASSISTANCE PATIENT STATES "PLEASE FORGET I HAD MY FALL YESTERDAY" STATES "IT WAS A COMPLETE ACCIDENT" PATIENT CONTINUES TO WANDER. AND MOVE ABOUT. THIS RN CONTINUINALLY CHECKING FOR SAFE ENVIORNMENT. PATIENT IS NOT AGITATED. HAPPY TO CONVERSE WITH STAFF. MAKES NEEEDS KNOWN REGARDING DESIRE FOR COFFEE OR OTHER ITEMS. DOES NOT WANT DOOR LEFT OPEN TO THE BATHROOM. HAS VERBALIZED UNDERSTANDING OF RISK FOR FALLS. YELLOW GOWN IN PLACE.
--- NOTE | 2019-03-31 18:33 | NUR ---
SHIFT SUMMARY PATIENT UP AND DOWN FREQUENTLY IN ROOM. CONTINUED CHECKS FOR SAFETY. ROOM FREE OF EXCESS CLUTTER. ENCOURAGING PATIENT TO USE CALL LIGHT FOR ASSTANCE. PATIENT CHANGING FREQUENTLY. MOVING AND REARRANGING BELONGINGS IN ROOM FREQUENTLY. USES OR FORGETS TO USE WALKER. CONTINUING TO ENCOURAGE SAFETY AROUND AMBULATION. PATIENT CONTINUES TO REFUSE TO HAVE STAFF SEE HIM CHANGE OR GO TO THE BATHROOM.
--- NOTE | 2019-04-01 04:49 | NUR ---
MOTION PICTURE SCENE BUILDER SUMMARY NO ACUTE CHANGES THIS SHIFT. PT AAOX3 AND COOPERATIVE. MORE PLEASANT TONIGHT COMPARED TO YESTERDAY. PT DENIES PAIN, N/V. PT HAVING A PRODUCTIVE COUGH, ON PO GUAIFENESIN. COARSE LUNG SOUNDS. VSS, WILL CONTINUE TO MONITOR
--- NOTE | 2019-04-01 15:35 | NUR ---
SUMMARY PT IS A/O X2-3, FORGETFUL. HE HAS BEEN CALM, FOLLOWS DIRECTION. UP IND IN ROOM TODAYHOWEVER HAVE BEEN MX CLOSE D/T FALL IN HOSP. HE WAS UP AMBULATE IN [place] w SERENE, SBA w GB. DR CASTELLANOS IN TO SEE HIM THIS AM, ORDER COUGH SYRUP. LUNGS DECREASED, COARSE BASES, OCC WET COUGH. VSS. DR ARCHER STATE CONTINUE TO AWAIT GUARDIANSHIP & PLACEMENT. VSS.
--- NOTE | 2019-04-02 04:48 | NUR ---
SHIFT SUMMARY PT AWAKE FOR MOST OF THE NIGHT AND ASKS FOR VARIOUS SNACKS. PT MEDICATED WITH TRAZADONE WITHOUT MUCH EFFECT. PT ANXIOUS AND FIGETY. A/OX3 BUT VERY FORGETFUL. HE AMBULATES INDEPENDENTLY IN THE ROOM AND IS STEADY ON HIS FEET. NO ACUTE CHANGES TO REPORT. ASSESSMENT UNCHANGED. BED IN LOWEST POSITION, CALL LIGHT WITHIN REACH. WILL CONTINUE TO MONITOR AND REPORT TO ONCOMING RN.
[2019-04-02 05:35] LABS: Hematocrit 34.7 % (37.0-53.0); Hemoglobin 10.9 g/dL (13.5-17.5); Mean Corpuscular HGB 29.1 pg (26.0-34.0); Mean Corpuscular HGB Conc 31.4 g/dL (31.5-36.5); Mean Platelet Volume 9.1 fL (9.1-12.4); Platelet Count 352 K/mm3 (150-400); RDW Coefficient Variation 17.2 % (11.7-14.2); RDW Standard Deviation 58.5 fL (35.1-46.3); Red Blood Cell Count 3.75 M/mm3 (4.30-5.90); White Blood Cell Count 7.19 K/mm3 (4.00-11.30)
[2019-04-02 05:38] LABS: Mean Corpuscular Volume 93 fL (80-100)
[2019-04-02 06:06] LABS: Anion Gap 2 mmol/L (6-16); Blood Urea Nitrogen 28 mg/dL (8-24); CO2, Blood 28 mmol/L (21-32); Calcium, Blood 8.9 mg/dL (8.5-10.1); Chloride, Blood 103 mmol/L (98-108); Creatinine, Blood 0.93 mg/dL (0.60-1.20); Glomerular Filtration Rate >60 (60-); Glucose, Blood 80 mg/dL (70-99); Potassium, Blood 3.7 mmol/L (3.5-5.5); Sodium, Blood 133 mmol/L (136-145)
--- NOTE | 2019-04-02 11:10 | NUR ---
Offered pt a shower three times thoughout the morning. Pt has been refusing care, stating that he doesn't want a shower today. Will try again tomorrow.
--- NOTE | 2019-04-02 17:55 | NUR ---
SUMMARY PT IS A/O X2-3, HE HAS BEEN UP IND TO BR & AMBULATING IN [place] w FWW, CLOSE MONITORING D/T RECENT FALL. HE STATE CHR BACK PAIN, HAVE GIVEN TYLENOL FOR CONTROL/RELIEF. WET COUGH CONTINUES, PRN COUGH SYRUP X2 TODAY. LUNGS SEEMED CLEAR HOWEVER DECREASED THIS AM. PT STATE CONTINUING FORGETFULNESS, MEMORY DEFICITS. HIS FRIEND WINSTON CALLED THIS AFTERNOON, STATE WILL MEET w D/C PLANNERS TOMORROW TO DISCUSS PLAN, PT INFORMED, HE WAS ABLE TO TALK w HER PERSONALLY, SEEMED RELIEVED. VSS.
--- NOTE | 2019-04-03 05:59 | NUR ---
SHIFT SUMMARY NO ACUTE CHANGES TO REPORT THIS SHIFT. PT HAS BEEN IN HIS ROOM MOST OF THE NIGHT AND IN INDEPENDENT IN HIS ROOM. USES CALL LIGHT WHENEVER HE NEEDS SOMETHING, MOST TIMES WHEN HE DOES CALL HE REQUESTS SNACKS AND BEVERAGES. VITALS HAVE BEEN STABLE. LABILE, CAN BE PLESANT AND AT TIMES IRRITABLE AND DEFENSIVE. FORGETFUL BUT EASY TO REORIENT. ASSESSMENT UNCHANGED. POSSIBLE DC ONCE APPROPRIATE ARRANGEMENTS HAVE BEEN MADE, POSSIBLY TODAY. BED IN LOWEST POSITION, CALL LIGHT WITHIN REACH. WILL CONTINUE TO MONITOR AND REPORT TO ONCMOING RN.
--- NOTE | 2019-04-03 10:30 | NUR ---
I explained to the pt that it had been a few days since he last showered and he told me he doesn't want a shower and to get out and leave him alone.
--- NOTE | 2019-04-03 14:24 | NUR ---
PATIENT PERMISSION PATIENT GAVE THIS STUDENT NURSE PERMISSION TO PROVIDE CARE ON 04/03/2019 FROM [phone].
--- NOTE | 2019-04-03 16:08 | NUR ---
SHIFT SUMMARY UNEVENTFUL SHIFT. PATIENT INDEPENDENT IN ROOM. CONTINUES ON PO ABX WITHOUT S/SX OF ADVERSE REACTIONS NOTED OR REPORTED. BACK PAIN BUT DENIES THE NEED FOR MEDICATION. NO ACUTE CHANGES TO REPORT OF AT THIS TIME. WILL CONTINUE TO MONITOR AND PROVIDE CARE NEEDED.
--- NOTE | 2019-04-04 02:06 | NUR ---
DR Roman updated on PT's CO insommnia despite Trazodone 50 mg po at HS. Melatonin order obtained Q HS for insommnia. Cough med given for moist nonprod cough. Up indep in room. Discharge planning continues for safe place to DC. PT unable to care for self. [place] . Very forgetful. Disheveled appearance. Irritable at times. Encouraged smoking cessation. Guardianship being pursued. Dc planning involved.
--- NOTE | 2019-04-04 07:13 | NUR ---
melatonin helpful to promote resting after administration. DC planning for dementia PT who is unable to care for self , lives alone.
--- NOTE | 2019-04-04 15:15 | NUR ---
SHIFT SUMMARY THE PATIENT HAD AN UNEVENTFUL SHIFT. VITALS STABLE. CONTINUES ON PO ABX WITHOUT S/SX OF ADVERSE REACTIONS NOTED OR REPORTED. NO CHANGES TO REPORTED AT THIS TIME.
--- NOTE | 2019-04-05 03:58 | NUR ---
68 year old Male with admission dx of elevated troponin 1 continues on antibiotic and steroid therapy to tx COPD resp infection. Speech therapy has been following PT and modified diet to include no use of straws. PT consistantly has refused showers and appears discheveled. He says he plans to resume tobacco use on DC despite 9 days without tobacco. PT appears unable to care for self, he lives alone and safe placement is being sought. PT frequently has difficulty remembering his date of and he can be irritable at times. 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
--- NOTE | 2019-04-05 18:07 | NUR ---
Initial spiritual care note: Mr. Chaves is pleasantly confused and had trouble following along in conversation. No family/friends present. We chatted a bit and I helped him work the TV remote until we found a program he recognized. He is gracious and tells me he is comfortable. He denied concerns. I will remian available.
--- NOTE | 2019-04-05 19:27 | NUR ---
NO ACUTE CHANGES THIS SHIFT. AWAITING PLACEMENT. EULALIA DANIELLE HERE TODAY TO ASSESS PATIENT. AWAITING [employer] COVERAGE. PATIENT CALLS APPROPRIATELY FOR ASSISTANCE. CAN BE IRRITABLE AT TIMES.
--- NOTE | 2019-04-06 05:18 | NUR ---
PT continues to refuse showers has poor hygiene. He is up indep in room. He appears short of breath whth exertion but says he plans to resume tobacco use as soon as he can. Poor insight and appears to lack social support. [place] he has friend Odette seeking guardianship and medicaid pending. Assessed by [facility] for safe DC plan. Tolerating diet and activity. PT has memory deficits and frequently uses call smart and can't remember what he needs. No agression irritable at times.
--- NOTE | 2019-04-06 18:50 | NUR ---
PATIENT AWAITING PLACEMENT. RN FROM [facility] HERE TO ASSESS PATIENT AND HE GOT UPSET AND TOLD THEM TO LEAVE. THEY HAVE DENIED HIM DUE TO HIS BEHAVIOR. TYLNOL GIVEN X1 THIS SHIFT FOR BACK, HA. HELTONIN FOR COUGH.
--- NOTE | 2019-04-06 19:52 | NUR ---
1914 REPORT RECEIVED FROM WENDY MULTANI; RESTING COMFORTABLY IN BED.
--- NOTE | 2019-04-07 04:03 | NUR ---
SHIFT SUMMARY: 68 Y/O MALE RESTED COMFORTABLY ALL SHIFT; HAPPY AND COOPERATIVE; WAITING PLACEMENT AT THIS TIME TO AFC; BED LOW POSITION WITH CALL LIGHT AT SIDE.
--- NOTE | 2019-04-07 18:42 | NUR ---
SHIFT SUMMARY- PT HAS HAD NO ACUTE CHANGES T/O THE SHIFT CONTINUES TO BE RESISTIVE TO CARE AND DOES NOT WANT TO SHOWER, WILL TRY TO CORRECT THIS AGAIN TOMORROW. THE MENTION OF A SHOWER CAUSES THE PT TO BECOME DEFENSIVE. LONG STAFF LEAVE HIM INDEPENDENT IN THE ROOM HE IS PLEASENT ENOUGH. PT DENIES ANY PAIN AND HAS HAD NO S&S OF DISTRESS T/O THE DAY.
--- NOTE | 2019-04-07 19:31 | NUR ---
REPORT RECEIVED FROM WENDY DESAI; RESTING COMFORTABLY IN BED WATCHING TV; DECLINED OFFER TO SHOWER THIS EVENING; CHEERFUL; ALERT AND ORIENTED X 4.
--- NOTE | 2019-04-08 04:20 | NUR ---
SHIFT SUMMARY: 68 Y/O MALE RESTED COMFORTABLY IN BED ALL SHIFT; PT PREFERRED DOOR SHUT WITH STAFF CHECKING EVERY 2 HOURS; DENIES PAIN OR NAUSEA; BED LOW POSITION WITH CALL LIGHT AT SIDE.
--- NOTE | 2019-04-08 12:18 | NUR ---
ASSUMED CARE OF PT- BEDSIDE REPORT COMPLETED WITH NIGHT RN GENOVEVA. PER REPORT PT HAS HAD NO CHANGE. PT HAS NOT RECIEVED A SHOWER I DAYS AND IS STILL DECLINING. WILL RE ATTEMPT A BATH OF SOME KIND TODAY.
--- NOTE | 2019-04-08 17:38 | NUR ---
SHIFT SUMMARY- PT ALERT AND ORIENTED TO SELF. PT WANTS TO BE LEFT ALONE. PT WILL ALLOW ASSESSMENTS WITH LIMITATIONS. PT REFUSED A SHOWER AGAIN TODAY HOWEVER TIMBER HARVESTER OPERATOR WAS ABLE TO GET HIM TO DO A SPOUNGE BATH ON HIS UPPER BODY WITH HIS SHIRT ON, HIS LINNENS WERE CHANGED AND THE FLOORS WERE MOPPED. STAFF ATTEMPTED TO CONVINCE THE PT TO ALLOW THEM TO WASH HIS DIRTY CLOTHES AND THE PT GOT ANGRY AND STATED "I LIKE DIRTY CLOTHES!" PT HAS HIS PERSONAL CLOTHING ON AT THIS TIME. NO IV ACCESS ORDER IN THE CHART. PT IS NOW REFUSING THE NICOTIENE PATCH STATING IT DOES NOT WORK.
--- NOTE | 2019-04-08 19:37 | NUR ---
PT RESTING COMFORTABLY IN BED.
--- NOTE | 2019-04-09 04:35 | NUR ---
SHIFT SUMMARY: 68 Y/O MALE AT BEGINNING OF SHIFT WAS VERY OBNOXIOUS WITH AGGRESSIVE BEHAVIOR NOTED (THROWING MILK CARTONS AT STAFF, LARGE AMOUNTS TRASH ON FLOOR TO INCLUDE FOOD, FLOOR AROUND BED IS STICKY AND SMELLS OF URINE; PTS CLOTHES HAVE VERY STRONG ODOR AND HAVE NOT BEEN CHANGED IN OVER 1 WEEK); PT CONTINUES TO DECLINE ALL HYGIENE OFFERED BY STAFF; THIS NURSE REVIEWED PATIENTS CURRENT STATUS WITH ABBEY SANABRIA RN, CHARGE NURSE; DENIES PAIN OR NAUSEA; BED LOW POSITION WITH CALL LIGHT AT SIDE; PTS DOOR IS SHUT AT NIGHT PER PATIENTS REQUEST WITH HEAT TURNED DOWN.
--- NOTE | 2019-04-09 17:26 | NUR ---
SHIFT SUMMARY- PT HAS HAD NO ACUTE CHANGES T/O THE SHIFT. PT HAS DECLINED THE NICOTIENE PATCH FOR THE PAST TWO DAYS. PT ALLOWED MORE SKIN ASSESSMENT THIS MORNING BUT IS RESISTIVE TO ALL CARE. PT BECOMES AGRESSIVE WHEN STAFF TRY TO TALK TO HIM ABOUT HYGENE. PT DID GET A PARTIAL BED BATH WITH HIS CLOTHES ON YESTERDAY. PT SEEMS THAT IRRITABLE A NORMAL PERSONALITY TRAIT. SPOKE TO HE IS AWARE OF PT CURRENT MOOD. WILL PASS ON IN REPORT TO NIGHT RN.
--- NOTE | 2019-04-10 05:01 | NUR ---
SHIFT SUMMARY- PT. HAD NO ACUTE CHANGES OVERNIGHT, INDEPENDENT IN ROOM. PT. IRRITATED AT TIMES, BUT OVERALL COOPERATIVE WITH CARE. SLEPT WELL T/O THE NIGHT, NO APPARENT DISTRESS NOTED. DENIED ANY PAIN OR DISCOMFORT T/O THE SHIFT. PT. AWAITING PLACEMENT. CALL LIGHT WITHIN REACH AND SIDE RAILS UP X2. WILL CONT TO MONITOR.
--- NOTE | 2019-04-10 09:00 | NUR ---
PT DISAGREEABLE, IRRITABLE. TOLD ME TO GET OUT. REFUSED ANSWERS . DENIES PAIN. REFUSED ASSESSMENT PAST LUNGS. HEART RATE REG, NO MURMER NOTED. NO TELE. LUNGS CLEAR RESP EASY, UNLABORED. ON R.A. BT X4. REFFUSED ANSWER LAST BM OR IF VOIDING. THREW PIECE OF BREAD AT ME. TOLD ME TO LEAVE HIM ALONE. I LEFT AT THAT TIME. BED IN LOW POSITION, CALL LITE IN REACH, INDEPENDANT IN ROOM.
--- NOTE | 2019-04-10 19:36 | NUR ---
PT IRRITABLE AND DEMANDING TODAY. REFUSED SHOWER. REFUSED MOST OF ASSESSMENT. WAS RUDE WITH ALSO THIS AM. HAS BEEN WATCHING TV MOST OF DAY. BED I LOW POSOTION,C ALL LITE IN REACH, CALLS APPROP
--- NOTE | 2019-04-11 04:58 | NUR ---
SHIFT SUMMARY- PT. RESTING COMFORTABLY IN BED T/O THE NIGHT. NO APPARENT DISTRESS NOTED. MEDICATED 1X FOR HEADACHE, PT. STATED MINIMAL RELIEF. NO OTHER ACUTE CHANGES T/O THE SHIFT. AWAITING PLACEMENT. CALL LIGHT WITHIN REACH AND SIDE RAILS UP X2. WILL CONT TO MONITOR.
--- NOTE | 2019-04-11 09:00 | NUR ---
PT IRRITABLE, REFUSED LUNG ASCULTATION, REFUSED ASSESSMENT. DEMANDED I LEAVE. REFUSED MEDS TODAY. THREATENED TO THROW FOOD AT ME. I CAME BACK LATER, SAME RESPONSE.
--- NOTE | 2019-04-11 16:05 | NUR ---
1400 ATTEMPTED TO ASCULTATE LUNGS. BEGAN TO LISTEN TO LUNGS, DEMANDED I GET OUT. STATES LUNGS NOT HURT.
--- NOTE | 2019-04-11 16:08 | NUR ---
WENT TO ROOM. LISTENED TO LUNGS SOME COARSENESS IN BASES. DEMANDED I LEAVE SO I DID.
--- NOTE | 2019-04-11 16:53 | NUR ---
PT HAS REFUSED ASSESSMENT AND MEDS THIS AM. HAS BEEN IRRITABLE AND DEMANDED I LEAVE ROOM SEVERAL TIMES. NO OTHER CONERNS AT THIS TIME. BED IN LOW POSITION, CALL LITE IN REACH, CALLS WHEN HAS NEEDS
--- NOTE | 2019-04-12 05:16 | NUR ---
SHIFT SUMMARY- NO ACUTE CHANGES OVERNIGHT. PT. RESTING COMFORTABLY IN BED, NO APPARENT DISTRESS. IRRITABLE AT BASELINE. PT. STILL AWAITING PLACEMENT. DENIED ANY NEEDS T/O THE NIGHT. CALL LIGHT WITHIN REACH AND SIDE RAILS UP X2. WILL CONT TO MONITOR.
--- NOTE | 2019-04-12 15:09 | NUR ---
SHIFT SUMMARY PT AWAKE DURING SHIFT REPORT, BUT VERY IRRITABLE AND RUDE TO OFF GOING RN. PT IS CO-OP WITH SOME CARE AT TIMES. WILL CALL FOR NEEDS, IF HE FEELS LIKE IT AND THEN DEMANDS THE DOOR SHUT. PT WILL NOT ANS QUESTIONS APPROPRIATELY. DENIED PAIN. DENIED NEEDS. DR CASTELLANOS IN TO SEE PT THIS AM. PT STILL WAITING FOR PLACEMENT.
--- NOTE | 2019-04-13 05:39 | NUR ---
SHIFT SUMMARY PATIENT ALERT AND ORIENTED. ABLE TO SLEEP MOST OF THE NIGHT. NO IV INSERTED AT THIS TIME. BED IN LOWEST POSITION WITH WHEELS LOCKED. CALL LIGHT WITHIN REACH. REPORT GIVEN TO ONCOMING RN.
--- NOTE | 2019-04-13 15:26 | NUR ---
LEFT MESSAGE ON VOICE MAIL THAT PATIENT REQUEST A COUGH/SORE THROAT DROP. DOES NOT WANT ROBITUSSIN THAT IS ORDERED. AWAITING CALL BACK OR ORDERS.
--- NOTE | 2019-04-13 18:22 | NUR ---
PATIENT ALERT . EVAL DONE WITH PATIENT HOME CLOTHES ON. COOPERATIVE. UNLABORED RESPIRATIONS. WHEN ASKS FOR SOMETHING WANTS IT RIGHT AWAY. WCTM
--- NOTE | 2019-04-14 05:23 | NUR ---
SHIFT SUMMARY PATIENT ALERT AND ORIENTED. WAS FAIRLY PLEASANT OVERNIGHT AND WAS ABLE TO SLEEP. BED IN LOWEST POSITION WITH WHEELS LOCKED. CALL LIGHT WITHIN REACH. REPORT GIVEN TO ONCOMING RN.
--- NOTE | 2019-04-14 16:32 | NUR ---
ALERT. ORIENTED. SITTING IN CHAIR IN HALLWAY COUPLE TIMES THIS SHIFT. LITTLE IRRITABLE, BUT COOPERATIVE. WILL NOT TAKE OFF HOME CLOTHES FOR EVAL. REFUSES SHOWER OR TO HAVE CLOTHES WASHED. UNLABORED RESPIRATIONS. WAITING FOR PLACEMENT. WCTM.
--- NOTE | 2019-04-14 21:16 | NUR ---
PT NON RECEPTIVE TO HS MEDS OR ASSESSMENT. "GET THE HELL OUT OF HERE" HE SAID. CALL LIGHT IN REACH. WILL CONTINUE TO MONITOR.
--- NOTE | 2019-04-15 03:07 | NUR ---
PT VERBALLY AGITATED AT TIMES, REFUSED MEDS EVEN THOUGH HE ASKED FOR THEM INITIALLY. SLEEPING QUIETLY IN BETWEEN EPISODES OF AGITATION. CALL LIGHT IN REACH
--- NOTE | 2019-04-15 18:12 | NUR ---
Shift Summary A/Ox3. Patient has been grumpy and has been refusing care. Shift assessment incomplete d/t patient refusal. When this RN inquired whether pt had a bowel movement today, patient states "Yes". This RN asked about characteristics of bowel, pt was angry and refused to describe. Pt said "Fuck you, leave!" This RN explained that patient needed to finish taking meds first and patient stated "You're an asshole" and then took his meds. Patient has been up in room and ambulatory in the hallway with FWW independently. Able to make needs known with call light. No other concerns. Awaiting placement.
--- NOTE | 2019-04-16 04:14 | NUR ---
PT LESS AGITATED AT HS AFTER RECEIVING A "ROAST BEEF SANDWICH". EVEN THANKED NURSE FOR BRINGING IT. ACCEPTED HS MEDS, HAS BEEN RESTING WITH FEW INTERRUPTIONS SINCE HS. CALL LIGHT IN REACH.
--- NOTE | 2019-04-16 11:16 | NUR ---
PATIENT WAS OFFERED A SHOWER THIS MORNING AND PATIENT DECLINED. WILL TRY AGAIN LATER TODAY. RN NOTIFIED.
--- NOTE | 2019-04-16 19:00 | NUR ---
Shift Summary A/Ox3, patient has been a little more pleasant today allowing this RN to partially assess him. Pt did not want his Tramadol at 1700 so this RN passed it on for night RN to offer closer to bedtime tonight. Pt has been ambulatory a few times in the hallway today. No c/o pain, denies any other needs. No acute changes.
--- NOTE | 2019-04-17 04:42 | NUR ---
LESS TERSE IN HIS COMMENTS TO STAFF THIS SHIFT THAN USUAL WHEN AWAKE. CURRENTLY RESTING QUIETLY WITHOUT NOTED DISTRESS. CALL LIGHT IN REACH.
[2019-04-17 05:29] LABS: BASOPHILS ABSOLUTE AUTO 0.02 K/mm3 (0.00-0.23); BASOPHILS PERCENT AUTO 0 % (0-2); EOSINOPHILS ABSOLUTE AUTO 0.27 K/mm3 (0.00-0.68); EOSINOPHILS PERCENT AUTO 5 % (0-6); Hematocrit 32.4 % (37.0-53.0); Hemoglobin 9.9 g/dL (13.5-17.5); IMMATURE GRAN ABSOLUTE AUTO 0.01 K/mm3 (0.00-0.10); IMMATURE GRAN PERCENT AUTO 0 % (0-1); LYMPHOCYTES ABSOLUTE AUTO 1.65 K/mm3 (0.84-5.20); LYMPHOCYTES PERCENT AUTO 31 % (21-46); MONOCYTES ABSOLUTE AUTO 0.31 K/mm3 (0.16-1.47); MONOCYTES PERCENT AUTO 6 % (4-13); Mean Corpuscular HGB 28.8 pg (26.0-34.0); Mean Corpuscular HGB Conc 30.6 g/dL (31.5-36.5); Mean Corpuscular Volume 94 fL (80-100); NEUTROPHILS ABSOLUTE AUTO 3.06 K/mm3 (1.96-9.15); NEUTROPHILS PERCENT AUTO 58 % (41-73); Platelet Count 243 K/mm3 (150-400); RDW Coefficient Variation 17.2 % (11.7-14.2); RDW Standard Deviation 59.9 fL (35.1-46.3); Red Blood Cell Count 3.44 M/mm3 (4.30-5.90); White Blood Cell Count 5.32 K/mm3 (4.00-11.30)
[2019-04-17 05:58] LABS: Anion Gap 1 mmol/L (6-16); Blood Urea Nitrogen 22 mg/dL (8-24); Bun/Creatinine Ratio 20.8 (12.0-20.0); CO2, Blood 29 mmol/L (21-32); Calcium, Blood 8.9 mg/dL (8.5-10.1); Chloride, Blood 107 mmol/L (98-108); Creatinine, Blood 1.06 mg/dL (0.60-1.20); Glomerular Filtration Rate >60 (60-); Glucose, Blood 77 mg/dL (70-99); Potassium, Blood 4.2 mmol/L (3.5-5.5); Sodium, Blood 137 mmol/L (136-145)
--- NOTE | 2019-04-17 16:38 | NUR ---
SHIFT SUMMARY PT REFUSED MOST CARE THIS SHIFT. REFUSED ASSISTANCE WITH PERSONAL CARE. REFUSED SHOWER. REFUSED MANY PARTS OF PHYSICAL ASSESSMENT. REFUSES TO ANSWER QUESTIONS OFTEN. PT AMBULATING WELL. WALKED HALLWAY WITH WALKER ONCE THIS SHIFT. NO OTHER CHANGES. WILL CONTINUE TO MONITOR UNTIL TURNOVER IS COMPLETE.
--- NOTE | 2019-04-18 06:43 | NUR ---
04/18/19 0600 VITALS STABLE. IRRITABLE AND RUDE AT TIMES. LIMITED ASSESSMENT POSSIBLE. UNEVENTFUL NIGHT.
--- NOTE | 2019-04-18 12:07 | NUR ---
CONSTIPATION PT COMPLAINING OF CONSTIPATION. DR. FANNY NICKIFIED. STATED SHE WILL ORDER BOWEL CARE. WILL CONITNUE TO MONITOR.
--- NOTE | 2019-04-18 13:44 | NUR ---
Patient gave this nursing director permission to help take care of him today 04/18/2019.
--- NOTE | 2019-04-18 18:17 | NUR ---
SHIFT SUMMARY PT COMPLAINING OF CONSTIPATION THIS SHIFT. MIRALAX ORDERED & GIVEN. PT CONTINUES TO REFUSE MOST CARE. PARTIAL ASSESSMENT COMPLETED DUE TO REFUSALS. PT ENCOURAGED TO AMBULATE HALLWAYS TO ENCOURAGE MOBILITY. NO OTHER CHANGES IN ASSESSMENT AT THIS TIME. VSS. WILL CONTINUE TO MONITOR UNTIL TURNOVER IS COMPLETE.
--- NOTE | 2019-04-19 06:49 | NUR ---
04/19/19 0600 WATCHING TV. VITALS STABLE. MORE PLEASANT WITH STAFF THIS SHIFT.
--- NOTE | 2019-04-19 18:09 | NUR ---
SHIFT SUMMARY PT ALERT AND ORIENTED THIS SHIFT. PT UP INDEPENDENTLY IN THE ROOM AND WALKS WITH FWW IN THE HALLS. PT COOPERATIVE WITH CARE THIS SHIFT. PT SITTING UP IN BED EATING DINNER.
--- NOTE | 2019-04-20 04:27 | NUR ---
SHIFT SUMMARY PT HAS HAD NO ACUTE CHANGES THIS SHIFT, NO C/O ANY KIND, PT APPEARS TO BE SLEEPING AT THIS TIME, CALL LIGHT IN REACH, WILL CONT TO MONITOR UNTIL REPORT GIVEN TO DAY RN.
--- NOTE | 2019-04-20 17:57 | NUR ---
PT ALERT AND ORIENTED THIS SHIFT. PT REFUSED ALL MEDICATIONS THIS SHIFT. PT WALKED IN THE HALLS MULTIPLE TIMES THROUGHOUT THIS SHIFT. PT HAD A VISITOR IN THE ROOM THIS SHIFT. PT CURRENTLY UP IN BED EATING DINNER.
--- NOTE | 2019-04-21 04:03 | NUR ---
SHIFT SUMMARY PT HAS HAD NO ACUTE CHANGES THIS SHIFT, NO C/O ANY KIND, PT HAS SLEPT T/O MOST OF SHIFT, WOKE AT 0300 FOR A SNACK AND IS SLEEPING AT THIS TIME W/CALL LIGHT IN REACH, WILL CONT TO MONITOR UNTIL REPORT GIVEN TO DAY RN.
--- NOTE | 2019-04-21 19:43 | NUR ---
SHIFT SUMMARY- PT HAS BEEN UP INDEPENDENTLY IN THE HALLS TODAY. PT HAS HAD NO ACUTE CHANGE T/O THE SHIFT. NO IV ACCESS ORDERED. PT HAS DENIED NEED FOR PAIN MEDS T/O THE SHIFT. PT DECLINED BATH MULTIPLE TIMES T/O THE SHIFT. PT CAN BECOME AGGITATED WITH INTERACTION WITH SATFF SO CARE IS GROUPED OFTEN POSSIBLE.
--- NOTE | 2019-04-22 18:39 | NUR ---
SHIFT SUMMARY- PT HAS HAD NO ACUTE CHANGE T/O THE DAY. PT STILL REFUSES BATHING AT THIS TIME. OFFERED TO WASH HIS CLOTHES AND THE PT DECLINED AND BECAME IRRITABLE. PT REFUSED TRAZADONE STATING HE WILL TAKE IT AT 6:30 TONIGHT.
--- NOTE | 2019-04-23 15:11 | NUR ---
PT STILL RESISTANT TO BATHING. STAFF DELICATELY ATTEMPTING TO PERSUADE THE PT TO PREVENT UN-NECESSARY AGGITATION TO THE PT. PT ALLOWED A PARTIAL ASSESSMENT THIS MORNING. PT HAS NO S&S OF DISTRESS, WALKS INDEPENDENTLY IN THE HALLS WITH A FWW AND PREFERS TO BE LEFT ALONE.
--- NOTE | 2019-04-23 18:47 | NUR ---
SHIFT SUMMARY- NO CHANGE SINCE THE PREVIOUS NOTE. PT SITTING UP IN BED CALL LIGHT IN REACH NO S&S OF DISTRESS NOTED.
--- NOTE | 2019-04-23 20:42 | NUR ---
04/23/192029 PT SLEEPING AT THIS TIME. RN WILL LET HIM REST. VITALS STABLE.
--- NOTE | 2019-04-24 05:54 | NUR ---
04/24/19 0545 PT SLEEPING ON AND OFF. VITALS STABLE. DENIES ANY PAIN OR S/S. UNEVENTFUL NIGHT.
--- NOTE | 2019-04-24 18:00 | NUR ---
SUMMARY PT IS A/O X3, HE HAS BEEN UP IND IN ROOM & AMBULATING IN [place] w FWW. HE STATE NO DISCOMFORT OR NEEDS T/O DAY. HE IS SOMEWHAT FLAT, WITHDRAWN PREFERS DOOR CLOSED, SPENDS MOST OF DAY WATCHING TV. HE REFUSED SHOWER, CLOTHES CHANGE TODAY, PREFERS DRESSED IN STREET CLOTHING. DR KIDD MEDICAL ISSUES RESOLVED, CONTINUE TO AWAIT PLACEMENT. HIS FRIEND IS WINSTON IS WORKING w FENDER FINISHER TO FACILITATE, NO SOLUTION @ THIS TIME.
--- NOTE | 2019-04-25 03:11 | NUR ---
04/25/19 0310 ROUNDS MADE AND PT IS SLEEPING AND SNORING.
--- NOTE | 2019-04-25 05:27 | NUR ---
04/25/19 0573 SLEEPING AT THIS TIME. UP TO BR FOR VOIDINGS AND STEADY ON FEET WITH WALKER. DENIES ANY DISCOMFORT. BREATH SOUNDS STILL COARSE WITH OCC. COUGH. UNEVENTFUL NIGHT.
--- NOTE | 2019-04-25 09:38 | NUR ---
IRRITABLE, UNCOOPERATIVE AFFECT THIS AM. REFUSE DR CASTELLANOS & THIS AR ASSESSMENT. "GET OUT". HE APPEARS FATIGUED. STATE NO NEEDS, RESTING IN BED.
--- NOTE | 2019-04-25 15:23 | NUR ---
Pt gave permission on 04/25/19 to assist in daily care for 04/26/19.
--- NOTE | 2019-04-25 16:11 | NUR ---
SUMMARY PT HAS BEEN SOMEWHAT IRRITABLE, REFUSE DR VISIT/ASSESSMENT THIS AM. REFUSE FULL SALES PROFESSIONAL. HE PREFERS TO STAY IN ROOM WATCHING TV MOST OF DAY, HAS BEEN OUT AMBULATING IN [place] IND w FWW BRIEFLY X1 THEN BACK TO ROOM. HE APPEARS SOMEWHAT FATIGUED THIS AM HOWEVER ALERT THIS AFTERNOON. HE REFUSED ALL MEDS THIS AM. VSS. CONTINUES TO AWAIT PLACEMENT.
--- NOTE | 2019-04-25 17:45 | NUR ---
PT DECLINE SCHEDULED TRAZADONE @ THIS TIME, SITTING UP IN BED FOR DINNER. QUIET, CALM HOWEVER CONTINUES SOMEWHAT IRRITABLE.
--- NOTE | 2019-04-25 18:50 | NUR ---
PT CONTINUES TO BE OBSTINATE, DECLINING TO ANSWER QUESTIONS R/T I&O, HE HAS BEEN UP IND TO BR, NO COMPLAINTS OF CONSTIPATION.
--- NOTE | 2019-04-26 06:04 | NUR ---
SHIFT SUMMARY NO ACUTE CHANGES TO REPORT THIS SHIFT. PT HAS RESTED MOST OF THE NIGHT, REQUESTS SNACKS OCCASIONALLY, BUT OTHERWISE SLEEPS. LABILE AFFECT, BECOMES IRRITABLE WITH STAFF VERY EASILY. INDEPENDENT IN THE ROOM WITH FWW. ASSESSMENT UNCHANGED. WILL CONTINUE TO MONITOR AND REPORT TO ONCOMING RN.
--- NOTE | 2019-04-26 09:00 | NUR ---
PT IRRITABLE. REFUSED ASSESSMENT AT THIS TIME. DID ALLOW LUNGS AND HEART. H/R REG, NO MURMER NOTED. NO TELE. LUNGS CLEAR AT THIS TIME. RESP EASY, UNLABORED. ON RA. PT CLOTHED. REFUSING SHOWERS. BED IN LOW POSITION, CALL LITE IN REACH, WALKS TO DOOR FOR NEEDS.
--- NOTE | 2019-04-26 10:03 | NUR ---
Medication Administration Pt refused applesause with meds. Cued pt that meds would be easier to swallow with applesauce. He said "I don't think they are easier" and pt took whole with water. No problems with swallowing whole.
--- NOTE | 2019-04-26 18:43 | NUR ---
PT PLEASANT MUCH OF AFTERNOON.. REFUSED ASSESSMENT THIS AM DID LISTEN TO LUNGS LATER IN DAY. CLEAR. WALKED TO HALLWAY TODAY TO SIT. NO SOB NOTED. BED IN LOW POSITION, CALL LITE IN REACH, WALKS TO DOOR FOR NEEDS
--- NOTE | 2019-04-27 03:50 | NUR ---
SHIFT SUMMARY PATIENT HAD NO ACUTE CHANGES OBSERVED. AXOX 3 AND INDEPENDENT WITH FWW. AGITATED DURING ASSESSMENT AND VITALS. TAKES MEDICATION WHOLE WITH WATER. REPORTED INSOMNIA AND MELATONIN 5 MG GIVEN PER EMAR. VSS/AFEBRILE. DENIES PAIN, SOB, AND N/V. NO IV ACCESS. ABLE TO SLEEP MOST OF THE SHIFT. CALL LIGHT IN REACH. BED IN LOWEST POSITION. WILL CONTINUE TO MONITOR UNTIL DAY SHIFT NURSE ASSUMES CARE.
--- NOTE | 2019-04-27 18:40 | NUR ---
SHIFT SUMMARY. PT PLEASANT THIS SHIFT, INDEPENDENT IN ROOM. PT GAVE HIMSELF PARTIAL UNSUPERVISED BEDBATH HE IS VERY PRIVATE. PT DENIES PAIN, SOB, N/V. NO NEW CHANGES OR CONCERNS. [facility] ROAD EQUIPMENT OPERATOR IN TO SEE PT TODAY, AWAITING PLACEMENT.
--- NOTE | 2019-04-27 21:54 | NUR ---
PATIENT WALKED [place] AT START OF SHIFT. INTERMITTENT AGITATION. RESTING IN BED. CALL LIGHT IN REACH.
--- NOTE | 2019-04-28 03:25 | NUR ---
SHIFT SUMMARY PATIENT HAD NO ACUTE CHANGES OBSERVED THIS SHIFT. AXO 3 AND INDEPENDENT IN THE ROOM. DENIES PAIN, SOB, AND N/V. NO IV ACCESS. VSS/AFEBRILE. WALKED [place] FIRST MINUTE AT SHIFT CHANGE. LESS AGITATION NOTED THAN LAST NOCX SHIFT. SLEPT MOST OF THE SHIFT. CALL LIGHT IN REACH. BED IN LOWEST POSITION. WILL CONTINUE TO MONITOR UNTIL DAY SHIFT NURSE ASSUMES CARE.
--- NOTE | 2019-04-28 18:40 | NUR ---
SHIFT SUMMARY. NO NEW CHANGES, PT IS AWAITING GUARDIANSHIP.
--- NOTE | 2019-04-29 05:08 | NUR ---
SUMMARY NO ISSUES NOTED PT SLEPT T/O SHIFT. PT REFUSED 2100 MEDS. PT CURRENTLY SLEEPING AND IN NO DISTRESS. CALL LIGHT IN REACH.
--- NOTE | 2019-04-29 17:04 | NUR ---
SHIFT SUMMARY- PT IS A/O, PLESANT AND COOPERATIVE. HE IS EATING AND DRINKING WELL. HE WAS UP WALKING IN THE HALLWAY THIS AFTERNOON.
--- NOTE | 2019-04-30 01:48 | NUR ---
PT RESTING COMFORTABLY IN BED.
--- NOTE | 2019-04-30 04:23 | NUR ---
SHIFT SUMMARY: 68 Y/O MALE RESTED COMFORTABLY IN BED ALL SHIFT; DENIES PAIN OR NAUSEA; DECLINED OFFER TO SHOWER BY THIS NURSE; BED LOW POSITION WITH CALL LIGHT AT SIDE.
--- NOTE | 2019-04-30 17:25 | NUR ---
SHIFT SUMMARY- PT IS A/O PLESANT AND COOPERATIVE. HE IS INDEPENDANT IN THE ROOM. EAING AND DRINKING WELL. AWAITING PLACMENT. TAKING MEDICATIONS WHOLE WITH WATER.
--- NOTE | 2019-05-01 06:01 | NUR ---
SHIFT SUMMARY: PATIENT IS A&OX3, NO REPORTS OF PAIN OR DISCOMFORT. PATIENT IS PLEASANT ONE MINUTE AND IRRITABLE THE NEXT, TELLING STAFF TO GET OUT OF HIS ROOM. PATIENT IS DISHEVELED BUT REFUSES ASSISTANCE WITH HS CARE. "I CAN DO IT MYSELF". PATIENT REQUESTED SLEEP AIDE, MELATONIN WAS GIVEN WITH GOOD EFFECT.
--- NOTE | 2019-05-01 16:49 | NUR ---
SHIFT SUMMARY PT RESTING QUIETLY AT START OF SHIFT. DOES NOT LIKE TO BE WOKE UP FOR CARE. WAS CO-OP WITH AM CARE. REFUSED SHOWER OR BED BATH; OFFERED SEVERAL TIMES. PT WALKED OUT TO [place] SEVERAL TIMES TO SIT IN CHAIR, USING FWW ON HIS OWN. INDEPENDENT IN TO BTHR. PT CONTINUES TO WAIT FOR PLACEMENT. DR CASTELLANOS IN TO SEE PT A COUPLE OF TIMES. NO NEW ORDERS TODAY. CALL LT IN REACH.
--- NOTE | 2019-05-02 06:44 | NUR ---
68 year old Male PT with dementia continues to need discharge planning to safe place. PT can be labile refused vital signs last night. Appetite fair, asks for snacks. Up indep in room. He is able to use call smart and frequently says I didn't call. medicated with melatonin 3 mg po for insommnia with helpful effect. no physical treats or violent behaviors. does refuse to give name or at times. Able to communicate needs. [place] who is unable to care for self with guardianship given due to decline in mental function.
--- NOTE | 2019-05-02 18:23 | NUR ---
SHIFT SUMMARY... NO ACUTE NEGATIVE CHANGES NOTED THIS SHIFT. PT'S VS STABLE. PT HAS BEEN TAKING WALKS IN THE [place] WAY AND IN HIS ROOM. PT HAS BEEN AGREEABLE TO SOME CARE THIS SHIFT BUT REFUSED A SHOWER. CALL LIGHT IN REACH WILL CONTINUE TO MONITOR UNTIL REPORT IS GIVEN TO ONCOMING RN.
--- NOTE | 2019-05-03 06:47 | NUR ---
PT continues itrritable and labile at times. He reports bowel movement yesterday. He has very poor hygiene refuses showers. Poor posture in bed. Refused HS meds. Loose moist cough. took robitussin.
--- NOTE | 2019-05-03 18:48 | NUR ---
No acute changes noted. No current complaints of pain or discomfort noted. Patient refused speech therapy today. No other issues noted. Will continue to monitor for changes.
--- NOTE | 2019-05-04 05:47 | NUR ---
PT continues to isolate in room and sleeps most of 12 hour shift, occasionally verbally abuse but usually follows up with a explaination of why. No threats or violent behavior. He is up independent in room, no attempts to leave secure unit. medicated with robitussion for loose moist cough with helpful effect. Reported by day RN Frida that PT has fear of water and he will not shower due to this. He did do self bed bath when provided with materials per report. No foul odors noted.
[2019-05-04] MEDS ORDERED: Aspir 8181 MG PO (11:34)
[2019-05-04] MEDS ORDERED: SEEBRI NEOHA15.6 MCG INH (12:11)
--- NOTE | 2019-05-04 15:41 | NUR ---
DISCHARGE DISCHARGE MEDICATIONS AND INSTRUCTIONS EXPLAINED TO PATIENT AND PATIENT'S FRIEND WINSTON. THEY STATED UNDERSTANDING. PATIENT TO CALL [facility] TO RESTABLISH WITH PCP. NO IV ACCESS. BELONGINGS WITH PATIENT. PATIENT TRNSFERED TO PRIVATE VEHICLE VIA WHEELCHAIR.
[2019-05-10] MEDS ORDERED: TIOT18 INH (16:21)
[2019-05-10] MEDS ORDERED: GUAI600T33 PO (16:43)
[2019-05-10] MEDS ORDERED: Prednisone20 MG PO (17:33)
== END 2019-05-04 15:10 | disposition home health service (06) | DRG 191 ==
LOC: ER 15:10 → MEDS 15:11
PROVIDERS: Emergency Medicine; Internal Medicine; Nurse Practitioner Acute Care; ADMIT Internal Medicine
DX: J44.0 Chronic obstructive pulmonary disease with (acute) lower respiratory infection (principal); F03.91 Unspecified dementia, unspecified severity, with behavioral disturbance; F05 Delirium due to known physiological condition; G93.40 Encephalopathy, unspecified; J44.1 Chronic obstructive pulmonary disease with (acute) exacerbation; I10 Essential (primary) hypertension; F17.210 Nicotine dependence, cigarettes, uncomplicated; I45.10 Unspecified right bundle-branch block; Z74.09 Other reduced mobility; Z86.73 Personal history of transient ischemic attack (TIA), and cerebral infarction without residual deficits; R73.03 Prediabetes; D50.9 Iron deficiency anemia, unspecified; J20.9 Acute bronchitis, unspecified
CPT/HCPCS: 0099U; 36415; 71046; 71260; 80048; 80053; 81001; 83735; 84443; 84484; 85025; 85027; 92507; 92523; 92526; 92610; 93005; 93010; 93306; 94640; 94667; 94760; 94761; 96361; 96374; 96375; 96376; 97110; 97116; 97162; 97165; 97530; 97535; 99285-25; A9270; A9270-GY; G0378; J1630; J2920; J7030; J7512; Q9967

== ENCOUNTER 2019-06-02 15:20 | Emergency (ER) | payer MEDICARE, OTHER ==
[~2019-06-02] VITALS: Ht 162.6 cm; Wt 61.2 kg
[~2019-06-02 15:20] MED LIST changes: +Aspir 8181 MG PO; +GUAI600T33 PO; +Prednisone20 MG PO; +SEEBRI NEOHA15.6 MCG INH; +TIOT18 INH
[2019-06-02] MEDS ORDERED: Voltaren100 GM TOP (16:34)
== END 2019-06-02 17:10 | disposition home or self-care (01) ==
LOC: ER 15:20
DX: M16.12 Unilateral primary osteoarthritis, left hip (principal); I10 Essential (primary) hypertension; F03.90 Unspecified dementia, unspecified severity, without behavioral disturbance, psychotic disturbance, mood disturbance, and anxiety; F17.210 Nicotine dependence, cigarettes, uncomplicated; Z79.899 Other long term (current) drug therapy
CPT/HCPCS: 73502; 99283-25

== ENCOUNTER 2019-07-26 07:51 | Emergency (ER) | payer MEDICARE, OTHER ==
[~2019-07-26] VITALS: Ht 160 cm; Wt 59.0 kg
[~2019-07-26 07:51] MED LIST changes: +Voltaren100 GM TOP
[2019-07-26] MEDS ORDERED: Ventolin/Prove6.7 GM INH (07:59)
[2019-07-26] MEDS ORDERED: METOPROLOL SUCC25 MG PO (07:59)
== END 2019-07-26 10:25 | disposition home or self-care (01) ==
LOC: ER 07:51
DX: M25.552 Pain in left hip (principal); G89.29 Other chronic pain; M54.5 Low back pain; I10 Essential (primary) hypertension; F03.90 Unspecified dementia, unspecified severity, without behavioral disturbance, psychotic disturbance, mood disturbance, and anxiety; F41.9 Anxiety disorder, unspecified; F32.9 Major depressive disorder, single episode, unspecified; F17.210 Nicotine dependence, cigarettes, uncomplicated; Z79.899 Other long term (current) drug therapy; Z86.73 Personal history of transient ischemic attack (TIA), and cerebral infarction without residual deficits
CPT/HCPCS: 36415; 99284